=== PATIENT | female | born 1960 | race Caucasian/White ===

== ENCOUNTER → 2018-02-10 | Outpatient (CLI) | payer OTHER ==
[2018-02-10 08:00] LABS: ABSOLUTE BASOPHILS # (AUTO) 0.1 10^3/uL (0.0-0.2); ABSOLUTE EOSINOPHILS # (AUTO) 0.1 10^3/uL (0.0-0.6); ABSOLUTE LYMPHOCYTES (AUTO) 1.7 10^3/uL (0.5-4.7); ABSOLUTE MONOCYTES (AUTO) 0.5 10^3/uL (0.1-1.4); BASOPHILS % (AUTO) 0.8 % (0-2); HEMATOCRIT 39.5 % (36.0-47.0); HEMOGLOBIN 13.5 g/dL (12.0-15.5); LYMPHOCYTES % (AUTO) 22.5 % (13-45); MEAN CORPUSCULAR HEMOGLOBIN 32.7 pg (27.0-33.4); MEAN CORPUSCULAR HGB CONC 34.1 g/dL (32.0-36.0); MEAN CORPUSCULAR VOLUME 96 fl (80-97); MONOCYTES % (AUTO) 6.7 % (3-13); PLATELET COUNT 290 10^3/uL (150-450); RED BLOOD COUNT 4.12 10^6/uL (3.72-5.28); RED CELL DISTRIBUTION WIDTH 13.5 % (11.5-14.0); TOTAL CELLS COUNTED % (AUTO) 100 %; WHITE BLOOD COUNT 7.4 10^3/uL (4.0-10.5)
[2018-02-10 08:23] LABS: ALANINE AMINOTRANSFERASE 34 U/L (9-52); ALBUMIN 3.7 g/dL (3.5-5.0); ALKALINE PHOSPHATASE 66 U/L (38-126); AMYLASE 37 U/L (30-110); ANION GAP 10 (5-19); ASPARTATE AMINO TRANSFERASE 26 U/L (14-36); BILIRUBIN,DIRECT 0.2 mg/dL (0.0-0.4); BILIRUBIN,TOTAL 0.8 mg/dL (0.2-1.3); BLOOD UREA NITROGEN 23 mg/dL (7-20); CALCIUM 9.2 mg/dL (8.4-10.2); CARBON DIOXIDE 31 mmol/L (22-30); CHLORIDE 101 mmol/L (98-107); CHOLESTEROL 205.24 mg/dL (0-200); GLUCOSE 353 mg/dL (75-110); SODIUM 142.1 mmol/L (137-145); TOTAL PROTEIN 6.3 g/dL (6.3-8.2); TRIGLYCERIDES 85 mg/dL (<150)
[2018-02-10 08:34] LABS: DIRECT LDL 127 mg/dL (<100)
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
[2018-02-10 12:08] LABS: T3 UPTAKE 36.8 %; THYROXINE T4 7.24 ug/dL (5.53-11.0)
== END ==
LOC: CCC 07:16
DX: E10.8 Type 1 diabetes mellitus with unspecified complications (principal); E03.8 Other specified hypothyroidism
CPT/HCPCS: 36415; 80053; 80061; 82150; 83036; 84436; 84443; 84479; 85025

== ENCOUNTER → 2018-07-11 | Outpatient (CLI) | payer OTHER ==
[2018-07-11 17:35] LABS: ABSOLUTE BASOPHILS # (AUTO) 0.1 10^3/uL (0.0-0.2); ABSOLUTE EOSINOPHILS # (AUTO) 0.1 10^3/uL (0.0-0.6); ABSOLUTE LYMPHOCYTES (AUTO) 1.5 10^3/uL (0.5-4.7); ABSOLUTE MONOCYTES (AUTO) 0.5 10^3/uL (0.1-1.4); BASOPHILS % (AUTO) 0.6 % (0-2); EOSINOPHILS % (AUTO) 0.9 % (0-6); HEMATOCRIT 39.6 % (36.0-47.0); HEMOGLOBIN 13.8 g/dL (12.0-15.5); LYMPHOCYTES % (AUTO) 19.1 % (13-45); MEAN CORPUSCULAR HGB CONC 34.8 g/dL (32.0-36.0); MEAN CORPUSCULAR VOLUME 95 fl (80-97); MONOCYTES % (AUTO) 5.8 % (3-13); PLATELET COUNT 289 10^3/uL (150-450); RED BLOOD COUNT 4.18 10^6/uL (3.72-5.28); RED CELL DISTRIBUTION WIDTH 13.4 % (11.5-14.0); SEGMENTED NEUTROPHILS % (AUTO) 73.6 % (42-78); TOTAL CELLS COUNTED % (AUTO) 100 %; WHITE BLOOD COUNT 8.1 10^3/uL (4.0-10.5)
[2018-07-11 17:55] LABS: ALANINE AMINOTRANSFERASE 18 U/L (9-52); ALBUMIN 3.9 g/dL (3.5-5.0); ALKALINE PHOSPHATASE 57 U/L (38-126); AMYLASE 32 U/L (30-110); ANION GAP 8 (5-19); ASPARTATE AMINO TRANSFERASE 24 U/L (14-36); BILIRUBIN,DIRECT 0.1 mg/dL (0.0-0.4); BILIRUBIN,TOTAL 0.6 mg/dL (0.2-1.3); BLOOD UREA NITROGEN 22 mg/dL (7-20); CALCIUM 9.6 mg/dL (8.4-10.2); CARBON DIOXIDE 30 mmol/L (22-30); CHLORIDE 102 mmol/L (98-107); GLUCOSE 109 mg/dL (75-110); POTASSIUM 4.5 mmol/L (3.6-5.0); SODIUM 140.2 mmol/L (137-145); TOTAL PROTEIN 6.7 g/dL (6.3-8.2)
[2018-07-11 18:11] LABS: T3 UPTAKE 36.1 %; THYROXINE T4 6.86 ug/dL (5.53-11.0)
--- NOTE | 2018-07-11 21:16 | RADIOLOGY REPORT (SQ) ---
EXAM DESCRIPTION: HAND BILATERAL 3 VIEWS COMPLETED DATE/TIME: 07/11/2018 5:31 pm REASON FOR STUDY: KENIA HAND PAIN E10.8 TYPE 1 DIABETES MELLITUS WITH UNSPECIFIED COMPLICATION E03.8 OTHER SPECIFIED HYPOTHYROIDISM M79.643 PAIN IN UNSPECIFIED HAND COMPARISON: None. EXAM PARAMETERS: NUMBER OF VIEWS: Three views right hand. Three views left hand. TECHNIQUE: AP, lateral and oblique radiographic images acquired of bilateral hands. LIMITATIONS: None. FINDINGS: RIGHT HAND: MINERALIZATION: Normal. BONES: No acute fracture or dislocation. No worrisome bone lesions. No significant osteophytes. JOINTS: No erosions. No felipe-articular osteopenia. No chondrocalcinosis. SOFT TISSUES: No swelling. No calcifications. OTHER: No other significant finding. LEFT HAND: MINERALIZATION: Normal. BONES: No acute fracture or dislocation. No worrisome bone lesions. No significant osteophytes. JOINTS: No erosions. No felipe-articular osteopenia. No chondrocalcinosis. SOFT TISSUES: No swelling. No calcifications. OTHER: No other significant finding. IMPRESSION: NEGATIVE STUDY BILATERAL HANDS. NO ACUTE POST-TRAUMATIC CHANGES. NO EXPLANATION FOR PAIN . TECHNICAL DOCUMENTATION: JOB ID: [id number] [employer]- All Rights Reserved Reading location - IP/workstation name: [email or web address]
[2018-07-13 16:03] LABS: CHOLESTEROL 192.54 mg/dL (0-200); TRIGLYCERIDES 57 mg/dL (<150)
[2018-07-13 16:14] LABS: DIRECT LDL 118 mg/dL (<100)
== END ==
LOC: OD 17:05
DX: M79.642 Pain in left hand (principal); M79.641 Pain in right hand; E10.8 Type 1 diabetes mellitus with unspecified complications; E03.8 Other specified hypothyroidism
CPT/HCPCS: 36415; 80053; 80061; 82150; 83036; 84436; 84443; 84479; 85025

== ENCOUNTER 2018-07-23 09:18 | Emergency (ER) | payer SELFPAY ==
[2018-07-23 09:34] VITALS: BP 143/60
--- NOTE | 2018-07-23 09:41 | ER Document Report ---
HPI - HPI Patient complains to provider of: left ear pain Onset: Yesterday Onset/Duration: Gradual Quality of pain: Achy Pain Level: 4 Context: Patient presents complaining of left ear pain that started yesterday. Patient states that she has had drainage from the left ear. Patient denies any fever. Associated Symptoms: Earache. denies: Fever Exacerbated by: Denies Relieved by: Denies Similar symptoms previously: No Recently seen / treated by doctor: No - ROS ROS below otherwise negative: Yes Systems Reviewed and Negative: Yes All other systems reviewed and negative - CONSTITUTIONAL Constitutional: DENIES: Fever - EENT EENT: REPORTS: Ear Pain - L. DENIES: Sore Throat - GASTROINTESTINAL Gastrointestinal: DENIES: Nausea, Patient vomiting - REPRODUCTIVE Reproductive: DENIES: : - MUSCULOSKELETAL Musculoskeletal: DENIES: Neck Pain - DERM Skin Color: Normal Skin Problems: None Past Medical History - General Information source: Patient - Social History Smoking Status: Never Smoker Chew tobacco use (# tins/day): No Frequency of alcohol use: Occasional Drug Abuse: None Lives with: Alone Family History: Reviewed & Not Pertinent Patient has suicidal ideation: No Patient has homicidal ideation: No - Past Medical History Cardiac Medical History: Denies: Hx Coronary Artery Disease, Hx Heart Attack, Hx Hypertension Pulmonary Medical History: Reports: Hx Bronchitis Denies: Hx Asthma, Hx COPD, Hx Pneumonia Neurological Medical History: Denies: Hx Cerebrovascular Accident, Hx Seizures Endocrine Medical History: Reports: Hx Diabetes Mellitus Type 2, Hx Hypothyroidism Renal/ Medical History: Reports: Hx Kidney Stones - 2010. Denies: Hx Peritoneal Dialysis GI Medical History: Denies: Hx Hepatitis, Hx Hiatal Hernia, Hx Ulcer Musculoskeletal Medical History: Reports Hx Arthritis Infectious Medical History: Denies: Hx Hepatitis Past Surgical History: Reports: Hx Orthopedic Surgery, Other - eye - Immunizations Hx Diphtheria, Pertussis, Tetanus Vaccination: Yes Vertical Provider Document - CONSTITUTIONAL Agree With Documented VS: Yes Exam Limitations: No Limitations General Appearance: WD/WN, No Apparent Distress - INFECTION CONTROL TRAVEL OUTSIDE OF THE [place] IN LAST 30 DAYS: No - HEENT HEENT: Atraumatic, Normocephalic. negative: Pharyngeal Exudate, Pharyngeal Tenderness, Pharyngeal Erythema, Tympanic Membrane Red, Tympanic Membrane Bulging Notes: left ear pain, minimal swelling to left external auditory canal with exudate, no mastoid tenderness or swelling. - NECK Neck: Normal Inspection, Supple. negative: Lymphadenopathy-Left, Lymphadenopathy-Right - RESPIRATORY Respiratory: Breath Sounds Normal, No Respiratory Distress - CARDIOVASCULAR Cardiovascular: Regular Rate, Regular Rhythm - BACK Back: Normal Inspection - MUSCULOSKELETAL/EXTREMETIES Musculoskeletal/Extremeties: MAEW - NEURO Level of Consciousness: Awake, Alert, Appropriate - DERM Integumentary: Warm, Dry, No Rash Course - Vital Signs Vital signs: Temp Pulse Resp BP Pulse Ox 97.7 F 62 18 143/60 H 98 07/23/18 09:32 07/23/18 09:32 07/23/18 09:32 07/23/18 09:32 07/23/18 09:32 Discharge - Discharge Clinical Impression: Otitis externa Qualifiers: Otitis externa type: unspecified type Chronicity: acute Laterality: left Qualified Code(s): H60.502 - Unspecified acute noninfective otitis externa, left ear Condition: Stable Disposition: HOME, SELF-CARE Instructions: Use of Ear Drops ([facility]), Otitis Externa ([facility]) Additional Instructions: Return immediately for any new or worsening symptoms Followup with your primary care provider, call tomorrow to make a followup appointment Prescriptions: Naproxen [Naprosyn 250 Nmg Tablet] 1 tab PO BID #14 tablet Neomy Sulf/Polymyx B Sulf/Hc [Cortisporin Ear Suspension] 4 drop OT QID #1 bottle Referrals: [facility] [Primary Care Provider] - Follow up as needed
== END 2018-07-23 09:55 | disposition home or self-care (01) ==
LOC: ER 09:18
DX: H60.502 Unspecified acute noninfective otitis externa, left ear (principal); H92.02 Otalgia, left ear; E11.9 Type 2 diabetes mellitus without complications
CPT/HCPCS: 99282

== ENCOUNTER 2018-08-12 09:39 | Emergency (ER) | payer SELFPAY ==
[2018-08-12] MEDS ORDERED: IPRATROPIUM/ALBUTEROL 0.5-2.5 MG/3 ML AMPUL NEB ONE (10:32)
[2018-08-12] MEDS ORDERED: ALBUTEROL SULFATE HFA (90 MCG/PUFF) 8 GM MDI (1 MDI/ER DISP) IH ONE (10:32)
--- NOTE | 2018-08-12 10:35 | ER Document Report ---
ED General - General Chief Complaint: Cold Symptoms Stated Complaint: COLD SYMPTOMS Time Seen by Provider: 08/12/18 10:23 Notes: Patient is a 58-year-old female that presents to the emergency department for chief complaint of cough and laryngitis. Patient states that her symptoms started yesterday around 5:00, she has been working clinically, is a nursing admin, and yesterday while she was at work the symptoms started. Her voice seem to go away over the course of the evening, and into this morning, she initially was having cough and sinus pressure, but feels more of a deeper cough and thinks it may be going to her lungs, reports history of bronchitis. She does have history of diabetes, denies history of lung disease such as COPD or emphysema. She denies having any associated fevers, chills, night sweats, chest pain, shortness of breath or difficulty breathing, nausea, vomiting or abdominal pain. Past Medical History: Diabetes mellitus Past Surgical History: Eye surgery, left rotator cuff surgery Social History: Denies tobacco, alcohol or illicit drug use Family History: Reviewed and noncontributory for presenting illness Allergies: Reviewed, see documented allergy list. REVIEW OF SYSTEMS: Other than noted above, the 12 point review of systems was reviewed with the patient and were negative, all pertinent findings are included in the HPI. PHYSICAL EXAMINATION: Vital signs reviewed, nursing noted reviewed. GENERAL: Well-appearing, well-nourished and in no acute distress Patient noted to have a soft voice, consistent with laryngitis. HEAD: Atraumatic, normocephalic. EYES: Eyes appear normal, extraocular movements intact, sclera anicteric, conjunctiva are normal. ENT: nares patent, oropharynx clear without exudates. Moist mucous membranes. TMs appear normal bilaterally. NECK: Normal range of motion, supple without lymphadenopathy, no stridor LUNGS: Breath sounds clear to auscultation bilaterally and equal. No wheezes rales or rhonchi. HEART: Regular rate and rhythm without murmurs ABDOMEN: Soft, nontender, normoactive bowel sounds. No rebound, guarding, or rigidity. No masses appreciated. EXTREMITIES: Nontender, good range of motion, no pitting or edema. NEUROLOGICAL: No focal neurological deficits. Moves all extremities spontaneously Motor and sensory grossly intact on exam. PSYCH: Normal mood, normal affect. SKIN: Warm, Dry, normal turgor, no rashes or lesions noted on exposed skin TRAVEL OUTSIDE OF THE [place] IN LAST 30 DAYS: No - Related Data Allergies/Adverse Reactions: loratadine [From Claritin] Allergy (Verified 08/12/18 09:41) povidone-iodine [From Betadine] Allergy (Verified 08/12/18 09:41) Soap [From Betadine] Allergy (Verified 08/12/18 09:41) Past Medical History - Social History Smoking Status: Never Smoker Chew tobacco use (# tins/day): No Frequency of alcohol use: None Drug Abuse: None Family History: Reviewed & Not Pertinent Patient has suicidal ideation: No Patient has homicidal ideation: No - Past Medical History Cardiac Medical History: Denies: Hx Coronary Artery Disease, Hx Heart Attack, Hx Hypertension Pulmonary Medical History: Reports: Hx Bronchitis Denies: Hx Asthma, Hx COPD, Hx Pneumonia Neurological Medical History: Denies: Hx Cerebrovascular Accident, Hx Seizures Endocrine Medical History: Reports: Hx Diabetes Mellitus Type 2, Hx Hypothyroidism Renal/ Medical History: Reports: Hx Kidney Stones - 2010. Denies: Hx Peritoneal Dialysis GI Medical History: Denies: Hx Hepatitis, Hx Hiatal Hernia, Hx Ulcer Musculoskeletal Medical History: Reports Hx Arthritis Infectious Medical History: Denies: Hx Hepatitis Past Surgical History: Reports: Hx Orthopedic Surgery, Other - eye. Denies: Hx Hysterectomy, Hx Mastectomy, Hx Open Heart Surgery, Hx Pacemaker - Immunizations Hx Diphtheria, Pertussis, Tetanus Vaccination: Yes Physical Exam - Vital signs Vitals: Temp Pulse Resp BP Pulse Ox 97.7 F 71 18 131/53 H 96 08/12/18 09:45 08/12/18 09:45 08/12/18 09:45 08/12/18 09:45 08/12/18 09:45 Course - Re-evaluation Re-evalutation: Patient seen and examined vital signs reviewed. Laboratory data and imaging were ordered as appropriate for the patient's presenting symptoms and complaint, with consideration of any critical or life threatening conditions that may be associated with their obtained history and exam as noted above. Patient was treated with DuoNeb breathing treatment Results were reviewed when available and demonstrated negative influenza testing and negative chest x-ray The patient was re-evaluated and was improved Evaluation was most consistent with URI with laryngitis, most likely viral in etiology, patient will be prescribed Mucinex, and albuterol inhaler, advised to follow-up with PCP. Results were discussed with the patient at this point, after careful consideration I feel that that patient can be discharged from the emergency department, the patient was educated treatments and reasons to return to the emergency department based on their presumed diagnosis as noted above, they were advised to followup with a primary care physician in 2-3 days. Patient was agreeable to plan of care. *Note is created using voice recognition software and may contain spelling, syntax or grammatical errors. Chest X-Ray 08/12/18 10:32 IMPRESSION: NO ACUTE RADIOGRAPHIC FINDING IN THE CHEST. - Vital Signs Vital signs: Temp Pulse Resp BP Pulse Ox 97.7 F 71 18 131/53 H 96 08/12/18 09:45 08/12/18 09:45 08/12/18 09:45 08/12/18 09:45 08/12/18 09:45 Discharge - Discharge Clinical Impression: Laryngitis URI (upper respiratory infection) Qualifiers: URI type: unspecified URI Qualified Code(s): J06.9 - Acute upper respiratory infection, unspecified Condition: Stable Disposition: HOME, SELF-CARE Instructions: Upper Respiratory Illness ([facility]), Laryngitis ([facility]) Additional Instructions: Please use the inhaler every 4 hours as needed for cough and shortness of breath , please take the Mucinex as prescribed, to help thin secretions, if your symptoms continue to persist over the next 2 weeks, and or not improving with conservative management, please follow-up with your primary care physician, at that point antibiotics may be warranted. Prescriptions: Guaifenesin [Mucinex] 1,200 mg PO BID #20 tab.er.12h Referrals: TISHA GONZALEZ MD [[facility]] - Follow up as needed
--- NOTE | 2018-08-12 10:58 | RADIOLOGY REPORT (SQ) ---
EXAM DESCRIPTION: CHEST 2 VIEWS COMPLETED DATE/TIME: 08/12/2018 10:48 am REASON FOR STUDY: cough COMPARISON: None. EXAM PARAMETERS: NUMBER OF VIEWS: two views TECHNIQUE: Digital Frontal and Lateral radiographic views of the chest acquired. RADIATION DOSE: NA LIMITATIONS: none FINDINGS: LUNGS AND PLEURA: No opacities, masses or pneumothorax. No pleural effusion. MEDIASTINUM AND HILAR STRUCTURES: No masses or contour abnormalities. HEART AND VASCULAR STRUCTURES: Heart normal size. No evidence for failure. BONES: No acute findings. HARDWARE: None in the chest. OTHER: No other significant finding. IMPRESSION: NO ACUTE RADIOGRAPHIC FINDING IN THE CHEST. TECHNICAL DOCUMENTATION: JOB ID: [id number] [employer]- All Rights Reserved Reading location - IP/workstation name: [email or web address]
[2018-08-12 11:01] LABS: A TYPE INFLUENZA AG NEGATIVE (NEGATIVE); B INFLUENZA AG NEGATIVE (NEGATIVE)
[2018-08-12 11:21] VITALS: BP 131/58
== END 2018-08-12 11:26 | disposition home or self-care (01) ==
LOC: ER 09:39
DX: J04.0 Acute laryngitis (principal); J06.9 Acute upper respiratory infection, unspecified; E11.9 Type 2 diabetes mellitus without complications; E03.9 Hypothyroidism, unspecified; Z87.442 Personal history of urinary calculi
CPT/HCPCS: 94640; 99284; 87804; 71046; J3490; J7620

== ENCOUNTER 2018-08-17 09:01 | Emergency (ER) | payer SELFPAY ==
[2018-08-17] MEDS ORDERED: NORMAL SALINE 1000 ML 1,000 ML IV ONE (09:33)
[2018-08-17] MEDS ORDERED: IPRATROPIUM/ALBUTEROL 0.5-2.5 MG/3 ML AMPUL NEB ONE (09:34)
[2018-08-17 10:39] LABS: ABSOLUTE BASOPHILS # (AUTO) 0.1 10^3/uL (0.0-0.2); ABSOLUTE EOSINOPHILS # (AUTO) 0.1 10^3/uL (0.0-0.6); ABSOLUTE LYMPHOCYTES (AUTO) 1.6 10^3/uL (0.5-4.7); ABSOLUTE MONOCYTES (AUTO) 0.8 10^3/uL (0.1-1.4); ABSOLUTE NEUT (AUTO) 6.8 10^3/uL (1.7-8.2); EOSINOPHILS % (AUTO) 1.6 % (0-6); HEMATOCRIT 40.1 % (36.0-47.0); HEMOGLOBIN 13.7 g/dL (12.0-15.5); LYMPHOCYTES % (AUTO) 16.9 % (13-45); MEAN CORPUSCULAR HEMOGLOBIN 32.5 pg (27.0-33.4); MEAN CORPUSCULAR HGB CONC 34.2 g/dL (32.0-36.0); MEAN CORPUSCULAR VOLUME 95 fl (80-97); MONOCYTES % (AUTO) 8.1 % (3-13); PLATELET COUNT 341 10^3/uL (150-450); RED BLOOD COUNT 4.22 10^6/uL (3.72-5.28); RED CELL DISTRIBUTION WIDTH 13.6 % (11.5-14.0); SEGMENTED NEUTROPHILS % (AUTO) 72.4 % (42-78); TOTAL CELLS COUNTED % (AUTO) 100 %; WHITE BLOOD COUNT 9.4 10^3/uL (4.0-10.5)
--- NOTE | 2018-08-17 10:55 | ER Document Report ---
ED General - General Chief Complaint: Sore Throat Stated Complaint: COUGH Time Seen by Provider: 08/17/18 09:26 TRAVEL OUTSIDE OF THE [place] IN LAST 30 DAYS: No - HPI Notes: Patient is a 58-year-old female that presents to the emergency department for chief complaint of cough and sore throat. Patient reports 6 days of cough. She was seen in the emergency room and given albuterol inhaler and Mucinex which she has been using. She states she is getting a productive sputum when coughing. The albuterol is not improving her cough. She denies any fevers but states she frequently feels cold. She states her throat feels scratchy when she is swallowing on occasion. She is a diabetic and her glucose today was 396. She reports polyuria and polydipsia. She denies any abdominal pain, nausea, vomiting and diarrhea. She denies chest pain. Past Medical History: Diabetes, hypothyroidism Past Surgical History: Left rotator cuff surgery Social History: Denies drugs alcohol and tobacco use Family History: Reviewed and noncontributory for presenting illness Allergies: Reviewed, see documented allergy list. REVIEW OF SYSTEMS: CONSTITUTIONAL : No fever chills No diaphoresis No recent illness EENT: No vision changes congestion sore throat CARDIOVASCULAR: No chest pain No palpitations RESPIRATORY: No shortness of breath cough No difficulty breathing GASTROINTESTINAL: No abdominal pain No nausea No vomiting No diarrhea GENITOURINARY: No dysuria No hematuria No difficulty urinating MUSCULOSKELETAL: No back pain No leg pain No arm pain SKIN: No rashes No lesions LYMPHATIC: No swollen, enlarged glands. NEUROLOGICAL: No lightheadedness No headache No weakness No paresthesias PSYCHIATRIC: No anxiety No depression PHYSICAL EXAMINATION: Vital signs reviewed, nursing noted reviewed. GENERAL: Well-appearing, well-nourished and in no acute distress. HEAD: Atraumatic, normocephalic. EYES: Eyes appear normal, extraocular movements intact, sclera anicteric, conjunctiva are normal. ENT: Nasal mucosal edema, no sinus tenderness to percussion, oropharynx clear without exudates. Dry mucous membranes. NECK: Normal range of motion, supple without lymphadenopathy LUNGS: Breath sounds clear to auscultation bilaterally and equal. No wheezes rales or rhonchi. HEART: Regular rate and rhythm without murmurs ABDOMEN: Soft, nontender, normoactive bowel sounds. No rebound, guarding, or rigidity. No masses appreciated. EXTREMITIES: Nontender, good range of motion, no pitting or edema. NEUROLOGICAL: No focal neurological deficits. Moves all extremities spontaneously Motor and sensory grossly intact on exam. PSYCH: Normal mood, normal affect. SKIN: Warm, Dry, normal turgor, no rashes or lesions noted on exposed skin - Related Data Allergies/Adverse Reactions: loratadine [From Claritin] Allergy (Verified 08/12/18 09:41) povidone-iodine [From Betadine] Allergy (Verified 08/12/18 09:41) Soap [From Betadine] Allergy (Verified 08/12/18 09:41) Past Medical History - Social History Smoking Status: Never Smoker Family History: Reviewed & Not Pertinent - Past Medical History Cardiac Medical History: Denies: Hx Coronary Artery Disease, Hx Heart Attack, Hx Hypertension Pulmonary Medical History: Reports: Hx Bronchitis Denies: Hx Asthma, Hx COPD, Hx Pneumonia Neurological Medical History: Denies: Hx Cerebrovascular Accident, Hx Seizures Endocrine Medical History: Reports: Hx Diabetes Mellitus Type 2, Hx Hypothyroidism Renal/ Medical History: Reports: Hx Kidney Stones - 2010. Denies: Hx Peritoneal Dialysis GI Medical History: Denies: Hx Hepatitis, Hx Hiatal Hernia, Hx Ulcer Musculoskeletal Medical History: Reports Hx Arthritis Infectious Medical History: Denies: Hx Hepatitis Past Surgical History: Reports: Hx Orthopedic Surgery, Other - eye. Denies: Hx Hysterectomy, Hx Mastectomy, Hx Open Heart Surgery, Hx Pacemaker - Immunizations Hx Diphtheria, Pertussis, Tetanus Vaccination: Yes Physical Exam - Vital signs Vitals: Temp Pulse Resp BP Pulse Ox 99.4 F 71 16 125/60 96 08/17/18 09:07 08/17/18 09:07 08/17/18 09:07 08/17/18 09:07 08/17/18 09:07 Course - Re-evaluation Re-evalutation: 08/17/18 10:55 Vitals reviewed. Nursing notes reviewed. Patient has dry mucous membranes and was given IV hydration. She appears clinically dehydrated. 08/17/18 12:34 Patient reevaluated after IV hydration and states she is feeling better. She is tolerating oral intake now. She is oxygenating well on room air. Chest x- ray shows no pneumonia. Rapid strep is negative. She is hyperglycemic on blood work however she is not in DKA. Patient has a glucometer and will continue to monitor blood sugars. She will follow with her doctor as already scheduled on 08/22. She will return for any new or worsening symptoms. Symptoms are likely viral in nature. Discharged home in stable condition. 08/17/18 12:35 Laboratory 08/17/18 08/17/18 08/17/18 10:15 10:15 11:30 WBC 9.4 RBC 4.22 Hgb 13.7 Hct 40.1 MCV 95 MCH 32.5 MCHC 34.2 RDW 13.6 Plt Count 341 Seg Neutrophils % 72.4 Lymphocytes % 16.9 Monocytes % 8.1 Eosinophils % 1.6 Basophils % 1.0 Absolute Neutrophils 6.8 Absolute Lymphocytes 1.6 Absolute Monocytes 0.8 Absolute Eosinophils 0.1 Absolute Basophils 0.1 VBG pH 7.34 VBG pCO2 56.2 VBG HCO3 29.5 VBG Base Excess 2.4 Sodium 136.9 L Potassium 4.9 Chloride 98 Carbon Dioxide 31 H Anion Gap 8 BUN 23 H Creatinine 0.72 Est GFR ( Amer) > 60 Est GFR (Non-Af Amer) > 60 Glucose 330 H Calcium 9.2 Group A Strep Rapid 08/17/18 11:45 WBC RBC Hgb Hct MCV MCH MCHC RDW Plt Count Seg Neutrophils % Lymphocytes % Monocytes % Eosinophils % Basophils % Absolute Neutrophils Absolute Lymphocytes Absolute Monocytes Absolute Eosinophils Absolute Basophils VBG pH VBG pCO2 VBG HCO3 VBG Base Excess Sodium Potassium Chloride Carbon Dioxide Anion Gap BUN Creatinine Est GFR ( Amer) Est GFR (Non-Af Amer) Glucose Calcium Group A Strep Rapid NEGATIVE Chest X-Ray 08/17/18 09:26 IMPRESSION: NO ACUTE RADIOGRAPHIC FINDING IN THE CHEST. - Vital Signs Vital signs: Temp Pulse Resp BP Pulse Ox 99.4 F 71 16 125/60 96 08/17/18 09:07 08/17/18 09:07 08/17/18 09:07 08/17/18 09:07 08/17/18 09:07 - Laboratory Result Diagrams: 08/17/18 10:15 08/17/18 10:15 Laboratory results interpreted by me: 08/17/18 10:15 Sodium 136.9 L Carbon Dioxide 31 H BUN 23 H Glucose 330 H Discharge - Discharge Clinical Impression: Cough, Hyperglycemia, Sore throat Condition: Stable Disposition: HOME, SELF-CARE Instructions: Sore Throat ([facility]), Upper Respiratory Illness ([facility]) Additional Instructions: Please return to the emergency department if you have any worsening, or concern of your symptoms. Please return to the emergency department if you develop chest pain, difficulty breathing, severe abdominal pain, or ongoing vomiting. Please follow-up with your primary care physician in 2-3 days and any other recommended physicians. If prescribed, take all medications as directed. If you have any questions or concerns do not hesitate to return the emergency department for evaluation. []
[2018-08-17 10:57] LABS: ANION GAP 8 (5-19); BLOOD UREA NITROGEN 23 mg/dL (7-20); CALCIUM 9.2 mg/dL (8.4-10.2); CARBON DIOXIDE 31 mmol/L (22-30); CHLORIDE 98 mmol/L (98-107); GLUCOSE 330 mg/dL (75-110); POTASSIUM 4.9 mmol/L (3.6-5.0); SODIUM 136.9 mmol/L (137-145)
--- NOTE | 2018-08-17 11:02 | RADIOLOGY REPORT (SQ) ---
EXAM DESCRIPTION: CHEST SINGLE VIEW COMPLETED DATE/TIME: 08/17/2018 10:06 am REASON FOR STUDY: cough COMPARISON: Two-view chest 08/12/2018 EXAM PARAMETERS: NUMBER OF VIEWS: One view. TECHNIQUE: Single frontal radiographic view of the chest acquired. RADIATION DOSE: NA LIMITATIONS: None. FINDINGS: LUNGS AND PLEURA: No opacities, masses or pneumothorax. No pleural effusion. MEDIASTINUM AND HILAR STRUCTURES: No masses. Contour normal. HEART AND VASCULAR STRUCTURES: Heart normal in size. Normal vasculature. BONES: No acute findings. HARDWARE: None in the chest. OTHER: No other significant finding. IMPRESSION: NO ACUTE RADIOGRAPHIC FINDING IN THE CHEST. TECHNICAL DOCUMENTATION: JOB ID: [id number] [employer]- All Rights Reserved Reading location - IP/workstation name: [email or web address]
[2018-08-17 11:52] LABS: VENOUS BLOOD BASE EXCESS 2.4 mmol/L; VENOUS BLOOD HCO3 29.5 mmol/L (20-32); VENOUS BLOOD PCO2 56.2 mmHg (35-63); VENOUS BLOOD PH 7.34 (7.30-7.42)
[2018-08-17 12:48] VITALS: BP 117/52
== END 2018-08-17 12:45 | disposition home or self-care (01) ==
LOC: ER 09:01
DX: E11.65 Type 2 diabetes mellitus with hyperglycemia (principal); J02.9 Acute pharyngitis, unspecified; R05 Cough; R35.8 Other polyuria; R63.1 Polydipsia
CPT/HCPCS: 94640; 99283; 96360; 36415; 87070; 87880; 85025; 80048; 82803; 71045; J7030; J7620

== ENCOUNTER → 2018-09-22 | Outpatient (CLI) | payer SELFPAY | LOC: OD 09:53 | PROVIDERS: ATTEND Obstetrics & Gynecology Gynecology | DX: F43.20 Adjustment disorder, unspecified (principal) | CPT/HCPCS: 36415; 84146 ==

== ENCOUNTER 2018-11-03 08:36 | Emergency (ER) | payer OTHER ==
[2018-11-03 08:48] VITALS: BP 142/59
--- NOTE | 2018-11-03 09:32 | ER Document Report ---
HPI - HPI Time Seen by Provider: 11/03/18 09:26 Pain Level: Denies Notes: Patient is a 58-year-old female who presents emergency department complaining of nasal congestion/discharge, sneezing, dry nonproductive cough, watery eyes over the last 2-3 days. Patient states that she is still eating and drinking without difficulty. She is urinating normally and having normal bowel movements. She has no other concerns or complaints. She has been using some [id number] meds for her symptoms. Denies any headache, fever, neck pain, sore throat, chest pain, palpitations, syncope, shortness of breath, wheeze, dyspnea, abdominal pain, nausea/vomiting/diarrhea, urinary retention, dysuria, hematuria, or rash. - ROS Systems Reviewed and Negative: Yes All other systems reviewed and negative - CONSTITUTIONAL Constitutional: DENIES: Fever, Chills - EENT EENT: DENIES: Eye problems - NEURO Neurology: DENIES: Weakness, Vision blurred, Dizzinesss / Vertigo - CARDIOVASCULAR Cardiovascular: DENIES: Chest pain - RESPIRATORY Respiratory: REPORTS: Coughing. DENIES: Trouble Breathing - GASTROINTESTINAL Gastrointestinal: DENIES: Abdominal Pain, Black / Bloody Stools - URINARY Urinary: DENIES: Dysuria, Urgency, Frequency - REPRODUCTIVE Reproductive: DENIES: : - MUSCULOSKELETAL Musculoskeletal: DENIES: Extremity pain Past Medical History - Social History Smoking Status: Never Smoker Chew tobacco use (# tins/day): No Frequency of alcohol use: None Drug Abuse: None Family History: Reviewed & Not Pertinent Patient has suicidal ideation: No Patient has homicidal ideation: No - Past Medical History Cardiac Medical History: Denies: Hx Coronary Artery Disease, Hx Heart Attack, Hx Hypertension Pulmonary Medical History: Reports: Hx Bronchitis Denies: Hx Asthma, Hx COPD, Hx Pneumonia Neurological Medical History: Denies: Hx Cerebrovascular Accident, Hx Seizures Endocrine Medical History: Reports: Hx Diabetes Mellitus Type 2, Hx Hypothy roidism Renal/ Medical History: Reports: Hx Kidney Stones - 2010. Denies: Hx Peritoneal Dialysis GI Medical History: Denies: Hx Hepatitis, Hx Hiatal Hernia, Hx Ulcer Musculoskeletal Medical History: Reports Hx Arthritis Infectious Medical History: Denies: Hx Hepatitis Past Surgical History: Reports: Hx Orthopedic Surgery, Other - eye. Denies: Hx Hysterectomy, Hx Mastectomy, Hx Open Heart Surgery, Hx Pacemaker - Immunizations Hx Diphtheria, Pertussis, Tetanus Vaccination: Yes Vertical Provider Document - CONSTITUTIONAL Agree With Documented VS: Yes Notes: PHYSICAL EXAMINATION: GENERAL: Well-appearing, well-nourished and in no acute distress. A&Ox4. Answers questions appropriately. Moves comfortably w/o notable distress HEAD: Atraumatic, normocephalic. EYES: Pupils equal round and reactive to light, extraocular movements intact, sclera anicteric, conjunctiva are normal. ENT: EAC clear b/l. TM's intact b/l without erythema, fluid, or perforation. Nares patent and with clear discharge. oropharynx no erythema without exudates. No tonsilar hypertrophy without erythema or exudate. No palatine shift. Uvula midline. No tongue protrusion. No drooling, hoarseness, or airway compromise. Moist mucous membranes. No sinus tenderness. NECK: Normal range of motion, supple without lymphadenopathy. No rigidity/meningismus. LUNGS: Breath sounds clear to auscultation bilaterally and equal. No wheezes rales or rhonchi. No retractions HEART: Regular rate and rhythm without murmurs, rubs, gallops. ABDOMEN: Soft, nontender, nondistended abdomen. No guarding, no rebound. Normal bowel sounds present. No CVA tenderness bilaterally. NEUROLOGICAL: Normal speech, normal gait. PSYCH: Normal mood, normal affect. SKIN: Warm, Dry, normal turgor, no rashes or lesions noted. - INFECTION CONTROL TRAVEL OUTSIDE OF THE [place] IN LAST 30 DAYS: No Course - Re-evaluation Re-evalutation: 11/03/18 09:28 Patient is an afebrile, well-hydrated, 22-year-old female who presents to the ED with acute URI, suspect viral with possible allergy component. Vitals are acceptable. PE is otherwise unremarkable. No labs or imaging warranted at this time based on H&P. Patient has no significant cardiopulmonary or immuno compromised medical conditions. Patient's lungs are clear to auscultation bilaterally without tachycardia, hypoxia, or tachypnea. Patient is tolerating p.o. without any difficulties. Low suspicion for any meningitis, sepsis, peritonsillar/pharyngeal abscess, respiratory compromise, severe dehydration, or other emergent systemic condition at this time. Patient is aware this condition can change from initial presentation and she needs to monitor symptoms closely. Conservative measures otherwise for symptoms. Recheck with your PCM in 3-5 days. Return to the ED with any worsening/concerning symptoms otherwise as reviewed in discharge. Patient is in agreement. - Vital Signs Vital signs: Temp Pulse Resp BP Pulse Ox 97.3 F 67 18 142/59 H 98 11/03/18 08:47 11/03/18 08:47 11/03/18 08:47 11/03/18 08:47 11/03/18 08:47 Discharge - Discharge Clinical Impression: Acute URI Condition: Stable Disposition: HOME, SELF-CARE Instructions: Upper Respiratory Illness ([facility]) Additional Instructions: Maintain adequate fluid intake Take meds as directed tylenol/ibuprofen as needed over the counter cold medication as needed for symptoms Humidified air may help Wash your hands regularly Wear a mask when coughing F/u: with your PCM in 3-5 days for a recheck Return to the ED with any fever, worsening pain, chest pain, palpitations, syncope, worsening RAMOS, neck pain/stiffness, shortness of breath, wheezing, drooling, trouble swallowing/breathing, abdominal pain, n/v/d, rash, or worsening/concerning symptoms otherwise. Forms: Elevated Blood Pressure Referrals: [facility] [Provider Group] - Follow up in 3-5 days
== END 2018-11-03 09:37 | disposition home or self-care (01) ==
LOC: ER 08:36
DX: J06.9 Acute upper respiratory infection, unspecified (principal); R09.81 Nasal congestion; R09.89 Other specified symptoms and signs involving the circulatory and respiratory systems; R05 Cough; E11.9 Type 2 diabetes mellitus without complications
CPT/HCPCS: 99283

== ENCOUNTER → 2018-11-17 | Outpatient (CLI) | payer OTHER ==
--- NOTE | 2018-11-17 18:06 | RADIOLOGY REPORT (SQ) ---
EXAM DESCRIPTION: CHEST PA/LATERAL COMPLETED DATE/TIME: 11/17/2018 5:41 pm REASON FOR STUDY: ACUTE BRONCHITIS; PNEUMONIA; PROLONGED COUGH COMPARISON: 08/17/2018 TECHNIQUE: Frontal and lateral radiographic views of the chest acquired. NUMBER OF VIEWS: Two view. LIMITATIONS: None. FINDINGS: LUNGS AND PLEURA: No pneumothorax. No consolidation or pleural effusion. MEDIASTINUM AND HILAR STRUCTURES: Stable. HEART AND VASCULAR STRUCTURES: Stable. BONES: No acute findings. HARDWARE: None in the chest. OTHER: No other significant finding. IMPRESSION: NO ACUTE FINDINGS. TECHNICAL DOCUMENTATION: JOB ID: [id number] 2010 [employer]- All Rights Reserved Reading location - IP/workstation name: [email or web address]
== END ==
LOC: CCC 17:14
DX: J20.9 Acute bronchitis, unspecified (principal); J18.9 Pneumonia, unspecified organism
CPT/HCPCS: 71046

== ENCOUNTER → 2018-11-19 | Outpatient (CLI) | payer OTHER ==
[2018-11-19 08:49] LABS: ALANINE AMINOTRANSFERASE 27 U/L (9-52); ALKALINE PHOSPHATASE 86 U/L (38-126); ANION GAP 9 (5-19); ASPARTATE AMINO TRANSFERASE 34 U/L (14-36); BILIRUBIN,DIRECT 0.2 mg/dL (0.0-0.4); BILIRUBIN,TOTAL 0.8 mg/dL (0.2-1.3); BLOOD UREA NITROGEN 21 mg/dL (7-20); CALCIUM 9.5 mg/dL (8.4-10.2); CARBON DIOXIDE 30 mmol/L (22-30); CHLORIDE 102 mmol/L (98-107); CHOLESTEROL 217.43 mg/dL (0-200); GLUCOSE 249 mg/dL (75-110); POTASSIUM 4.7 mmol/L (3.6-5.0); SODIUM 140.5 mmol/L (137-145); TOTAL PROTEIN 6.5 g/dL (6.3-8.2); TRIGLYCERIDES 99 mg/dL (<150)
[2018-11-19 09:00] LABS: DIRECT LDL 123 mg/dL (<100)
== END ==
LOC: CCC 07:43
DX: E11.8 Type 2 diabetes mellitus with unspecified complications (principal); E03.8 Other specified hypothyroidism; J20.9 Acute bronchitis, unspecified
CPT/HCPCS: 36415; 80053; 80061; 83036; 84443

== ENCOUNTER → 2019-02-20 | Outpatient (CLI) | payer OTHER ==
[2019-02-20 11:51] LABS: FREE T4 (FREE THYROXINE) 1.46 ng/dL (0.78-2.19)
[2019-02-20 12:05] LABS: THYROID STIMULATING HORMONE 0.08 uIU/mL (0.47-4.68)
== END ==
LOC: LAB 10:24
PROVIDERS: ATTEND Internal Medicine Endocrinology, Diabetes & Metabolism
DX: E03.8 Other specified hypothyroidism (principal)
CPT/HCPCS: 36415; 84439; 84443

== ENCOUNTER → 2019-03-27 | Outpatient (CLI) | payer OTHER ==
--- NOTE | 2019-03-27 15:23 | RADIOLOGY REPORT (SQ) ---
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 TECHNIQUE: Multiplanar imaging includes noncontrasted T1, T2, FLAIR, diffusion with ADC map and post gadolinium contrast T1 sequences. Pituitary protocol, thin section coronal and sagittal T2, T1 precontrast, T1 post contrasted images t hrough the pituitary gland and sella. Images stored on PACS. CONTRAST TYPE AND DOSE: 15 mL Dotarem. RENAL FUNCTION: Not indicated. ACR Type II contrast agent associated with few, if any, unconfounded cases of NSF LIMITATIONS: None. FINDINGS: PITUITARY FOSSA: Overall, the pituitary gland is at the upper limits of normal size, 10 mm craniocaudad by 11 mm AP x 12 mm transverse. Normal posterior pituitary bright spot. Midline infun dibulum. No bulging into the suprasellar cistern or cavernous sinuses. No mass effect on the optic chiasm. Right ICA loops medially into the sella on coronal images and 7, an anatomic variant. CSF SPACES: Normal in size and contour. No hemorrhage. CEREBRUM: Sulci and gyri normal in size and contour. Normal white matter signal on FLAIR imaging. No evidence of hemorrhage, mass, or extraaxial fluid collection. No abnormal enhancement post contrast. POSTERIOR FOSSA: No signal alteration. No hemorrhage. No edema, masses, or mass effect. Internal augustin tory canals, cerebellopontine angles, mastoids normal. No enhancing lesions. No abnormal enhancement post contrast. DIFFUSION IMAGING: Negative for acute or subacute infarction. ORBITS: No masses. Right globe post cataract surgery. PARANASAL SINUSES: No fluid levels. Mucosa normal. OTHER: No other significant finding. IMPRESSION: ESSENTIALLY NORMAL MRI OF THE BRAIN WITHOUT AND WITH INTRAVENOUS GADOLINIUM CONTRAST. EVIDENCE OF ACUTE STROKE: NO. TECHNICAL DOCUMENTATION: JOB ID: [id number] [employer]- All Rights Reserved Reading location - IP/workstation name: [email or web address]
== END ==
LOC: RAD 13:33
DX: E23.6 Other disorders of pituitary gland (principal)
CPT/HCPCS: 82565; 70553; A9576

== ENCOUNTER 2019-04-18 07:17 | Emergency (ER) | payer OTHER ==
[2019-04-18] MEDS ORDERED: ACETAMINOPHEN 325 MG TABLET PO ONE (09:08)
--- NOTE | 2019-04-18 09:10 | ER Document Report ---
HPI - HPI Time Seen by Provider: 04/18/19 08:47 Pain Level: 5 Context: Patient is a 58-year-old female with a history of type 1 diabetes and hypothyroidism who presents to the emergency department with a chief complaint of fall. Patient states that last night around 7 PM she was at [facility] when she tripped/slipped over a bag of mulch. Patient states she was carrying her purse on her left arm and when she fell onto her left side her purse jammed into her left ribs. Patient reports that the pain is worse with deep breath and movement. Patient reports a history of a fractured rib on the right and reports that it feels similar. Patient denies any other injury to include loss of consciousness, head injury, neck injury or extremity injury. Patient states she is not on blood thinners but will occasionally take a baby aspirin when she remembers. Patient has not taken any Tylenol or ibuprofen for her discomfort. - REPRODUCTIVE Reproductive: DENIES: : Past Medical History - General Information source: Patient - Social History Smoking Status: Never Smoker Frequency of alcohol use: None Drug Abuse: None Lives with: Family Family History: Reviewed & Not Pertinent - Past Medical History Cardiac Medical History: Reports: None Denies: Hx Coronary Artery Disease, Hx Heart Attack, Hx Hypertension Pulmonary Medical History: Reports: Hx Bronchitis Denies: Hx Asthma, Hx COPD, Hx Pneumonia EENT Medical History: Reports: None Neurological Medical History: Reports: None. Denies: Hx Cerebrovascular Accident, Hx Seizures Endocrine Medical History: Reports: Hx Diabetes Mellitus Type 1, Hx Hypothyroidism Renal/ Medical History: Reports: Hx Kidney Stones - 2010. Denies: Hx Peritoneal Dialysis Malignancy Medical History: Reports: None GI Medical History: Reports: None. Denies: Hx Hepatitis, Hx Hiatal Hernia, Hx Ulcer Musculoskeletal Medical History: Reports Hx Arthritis Skin Medical History: Reports None Psychiatric Medical History: Reports: None Traumatic Medical History: Reports: None Infectious Medical History: Reports: None. Denies: Hx Hepatitis Past Surgical History: Reports: Hx Orthopedic Surgery, Other - eye. Denies: Hx Hysterectomy, Hx Mastectomy, Hx Open Heart Surgery, Hx Pacemaker - Immunizations Hx Diphtheria, Pertussis, Tetanus Vaccination: Yes Vertical Provider Document - CONSTITUTIONAL Agree With Documented VS: Yes Exam Limitations: No Limitations General Appearance: No Apparent Distress Notes: GENERAL: Well-appearing, well-nourished and in no acute distress. HEAD: Atraumatic, normocephalic. EYES: Pupils equal round and reactive to light, extraocular movements intact, sclera anicteric, conjunctiva are normal. ENT: TMs normal, nares patent, oropharynx clear without exudates. Moist mucous membranes. NECK: Normal range of motion, supple without lymphadenopathy or JVD. LUNGS: Breath sounds clear to auscultation bilaterally and equal. No wheezes rales or rhonchi. Tenderness noted to the anterior lower left ribs, no edema, ecchymosis, erythema, abrasion or laceration. HEART: Regular rate and rhythm without murmurs, rubs or gallops. ABDOMEN: Soft, nontender, normoactive bowel sounds. No guarding, no rebound. No masses appreciated. BACK: No cervical, thoracic, lumbar midline tenderness. No saddle anesthesia, normal distal neurovascular exam. GENITOURINARY: Deferred. EXTREMITIES: Normal range of motion, no pitting or edema. No clubbing or cyanosis. NEUROLOGICAL: Cranial nerves II through XII grossly intact. Normal speech, normal gait. PSYCH: Normal mood, normal affect. SKIN: Warm, Dry, normal turgor, no rashes or lesions noted. - INFECTION CONTROL TRAVEL OUTSIDE OF THE [place] IN LAST 30 DAYS: No Course - Re-evaluation Re-evalutation: 04/18/19 09:09 We will give patient Tylenol for her discomfort and obtain a chest x-ray to include a left ribs. Patient is nontoxic-appearing in no acute distress. 04/18/19 10:01 Patient resting comfortably on stretcher no acute distress. I did discuss the chest x-ray and rib x-ray results with the patient. There is no acute fracture. I did inform the patient that she may continue to use a pillow to help brace the left side as she coughs and deep breathes to help prevent pneumonia. I did inform the patient to not use abdominal binders or splinting as this can lead to shallow breathing and infection. Patient verbalized understanding. - Vital Signs Vital signs: Temp Pulse Resp BP Pulse Ox 97.5 F 64 16 132/60 H 98 04/18/19 07:24 04/18/19 07:24 04/18/19 07:24 04/18/19 07:26 04/18/19 07:24 - Diagnostic Test Radiology reviewed: Image reviewed, Reports reviewed Radiology results interpreted by me: 04/18/19 09:52 Ribs w/Chest X-Ray 04/18/19 09:06 IMPRESSION: NO PNEUMOTHORAX. NO DISPLACED RIB FRACTURES. Discharge - Discharge Clinical Impression: Contusion of rib on left side Qualifiers: Encounter type: initial encounter Qualified Code(s): S20.212A - Contusion of l eft front wall of thorax, initial encounter Condition: Stable Disposition: HOME, SELF-CARE Additional Instructions: Today you were seen in the emergency department for left rib pain after a fall. Your chest x-ray was negative which did not show a puncture of the lung or any nondisplaced rib fractures. Since this was negative you are being diagnosed with bruised ribs. It usually takes a few weeks for these injured ribs to heal. Please continue to cough and take a deep breath at least every hour or 2 to help prevent lung complications. Do not engage in strenuous activity. Please return to the emergency department if you develop fever, persistent cough, coughing up blood or shortness of breath, increasing pain weakness, lightheadedness or fainting. If your symptoms change please return to the emergency department. You may continue to use a pillow to help brace the left side if this helps with comfort. Please take Tylenol and ibuprofen as needed for pain. Rib Injuries and Fractures You have been diagnosed as having either bruised or broken ribs. These two injuries are treated in the same way. It will usually take four to six weeks for these injured ribs to heal. Sometimes, rib belts or anesthetic injections of the chest wall help reduce the pain. If you are using a rib belt, you should cough or take a deep breath at least every hour or two to prevent lung complications. You should not engage in any strenuous physical activity until released by your physician. The usual rule is "if it hurts, don't do it." Rib fractures can lead to serious lung complications including lung collapse, hemorrhage, and pneumonia. You should call the physician or return at once if any of the following occur: (1) Fever or chills. (2) Persistent cough, coughing up blood, or shortness of breath. (3) Increasing pain. (4) Weakness, lightheadedness, or fainting. Rib Contusion You have been diagnosed as having bruised ribs. It will usually take a few weeks for these injured ribs to heal. You should cough or take a deep breath at least every hour or two to prevent lung complications. You should not engage in any strenuous physical activity until released by your physician. The usual rule is "if it hurts, don't do it." Return if you develop any of the following: (1) Fever or chills. (2) Persistent cough, coughing up blood, or shortness of breath. (3) Increasing pain. (4) Weakness, lightheadedness, or fainting. Referrals: [facility] [Primary Care Provider] - Follow up as needed
--- NOTE | 2019-04-18 09:29 | RADIOLOGY REPORT (SQ) ---
EXAM DESCRIPTION: RIBS LEFT W/PA CHEST COMPLETED DATE/TIME: 04/18/2019 9:20 am REASON FOR STUDY: Fall, left rib pain COMPARISON: 11/17/2018 chest films. TECHNIQUE: Frontal view of the chest and additional views of the left ribs acquired. NUMBER OF VIEWS: 3 LIMITATIONS: None. FINDINGS: FRONTAL CXR: No pneumothorax. No pleural effusion. No atelectasis or infiltrates. RIBS: No displaced rib fractures. No lytic or blastic bony lesions. OTHER: No other significant finding. IMPRESSION: NO PNEUMOTHORAX. NO DISPLACED RIB FRACTURES. COMMENT: SITE OF TRAUMA/COMPLAINT MARKED/STAMP COMPLETED: NO. TECHNICAL DOCUMENTATION: JOB ID: [id number] [employer]- All Rights Reserved Reading location - IP/workstation name: [email or web address]
[2019-04-18 10:29] VITALS: BP 133/75
== END 2019-04-18 10:34 | disposition home or self-care (01) ==
LOC: ER 07:17
DX: S20.212A Contusion of left front wall of thorax, initial encounter (principal); R07.1 Chest pain on breathing; W01.0XXA Fall on same level from slipping, tripping and stumbling without subsequent striking against object, initial encounter; Y92.512 Supermarket, store or market as the place of occurrence of the external cause; E10.9 Type 1 diabetes mellitus without complications
CPT/HCPCS: 99283

== ENCOUNTER 2019-05-05 16:10 | Emergency (ER) | payer OTHER ==
[2019-05-05 16:35] VITALS: BP 145/63
--- NOTE | 2019-05-05 17:05 | ER Document Report ---
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 Patient states that in anticipation of her application for employment she knows that she will have to have a chest x-ray showing that she does not have TB. Patient states she does not have insurance and needs to have an x-ray performed. Patient is requesting for us to do a screening x-ray for her preemployment. Patient denies any cough fever or weight loss. Patient additionally has chapped lips and tugged at some skin that is flapping and would like it to be trimmed. Patient was seen here in the emergency department 2 weeks ago after a rib injury and had a chest x-ray with rib series performed. Associated Symptoms: denies: Chest pain, Nonproductive cough, Productive cough, Fever Exacerbated by: Denies Relieved by: Denies Similar symptoms previously: Yes Recently seen / treated by doctor: Yes - ROS ROS below otherwise negative: Yes Systems Reviewed and Negative: Yes All other systems reviewed and negative - CONSTITUTIONAL Constitutional: DENIES: Fever, Chills - CARDIOVASCULAR Cardiovascular: DENIES: Chest pain - RESPIRATORY Respiratory: DENIES: Trouble Breathing, Coughing - REPRODUCTIVE Reproductive: DENIES: : - DERM Skin Color: Normal Skin Problems: None Past Medical History - General Information source: Patient - Social History Smoking Status: Former Smoker Frequency of alcohol use: None Drug Abuse: None Occupation: none Family History: Reviewed & Not Pertinent Patient has suicidal ideation: No Patient has homicidal ideation: No - Past Medical History Cardiac Medical History: Reports: Hx Hypercholesterolemia Pulmonary Medical History: Reports: Hx Bronchitis Neurological Medical History: Denies: Hx Cerebrovascular Accident, Hx Seizures Endocrine Medical History: Reports: Hx Diabetes Mellitus Type 1, Hx Diabetes Mellitus Type 2, Hx Hypothyroidism Renal/ Medical History: Reports: Hx Kidney Stones - 2010. Denies: Hx Peritoneal Dialysis Musculoskeletal Medical History: Reports Hx Arthritis Infectious Medical History: Denies: Hx Hepatitis Past Surgical History: Reports: Hx Orthopedic Surgery, Other - eye - Immunizations Hx Diphtheria, Pertussis, Tetanus Vaccination: Yes Vertical Provider Document - CONSTITUTIONAL Agree With Documented VS: Yes Exam Limitations: No Limitations General Appearance: WD/WN, No Apparent Distress - INFECTION CONTROL TRAVEL OUTSIDE OF THE [place] IN LAST 30 DAYS: No - HEENT HEENT: Atraumatic, Normocephalic - NECK Neck: Normal Inspection - RESPIRATORY Respiratory: Breath Sounds Normal, No Respiratory Distress - CARDIOVASCULAR Cardiovascular: Regular Rate, Regular Rhythm - BACK Back: Normal Inspection - MUSCULOSKELETAL/EXTREMETIES Musculoskeletal/Extremeties: MAEW, FROM, Non-Tender - NEURO Level of Consciousness: Awake, Alert, Appropriate Motor/Sensory: No Motor Deficit - DERM Integumentary: Warm, Dry Notes: Small area of peeling skin to left lip Course - Vital Signs Vital signs: Temp Pulse Resp BP Pulse Ox 98.4 F 72 18 145/63 H 98 05/05/19 16:33 05/05/19 16:33 05/05/19 16:33 05/05/19 16:33 05/05/19 16:33 - Diagnostic Test Radiology reviewed: Reports reviewed - Reviewed chest x-ray report from 04/18/2019 Discharge - Discharge Clinical Impression: request for CXR to screen for TB, Chapped lips Condition: Stable Disposition: HOME, SELF-CARE Additional Instructions: Return immediately for any new or worsening symptoms Followup with your primary care provider, call tomorrow to make a followup appointment Your primary doctor can order screening tests such as chest x-ray to rule out TB. Frequently employer's will send you for TB screening if they require it for employment Your chest x-ray performed on 04/18/2019 did not have any suspicious lesions that would warrant additional testing for TB Referrals: [facility] [Primary Care Provider] - Follow up as needed
== END 2019-05-05 17:10 | disposition home or self-care (01) ==
LOC: ER 16:10
DX: Z11.1 Encounter for screening for respiratory tuberculosis (principal); T69.8XXA Other specified effects of reduced temperature, initial encounter; E11.9 Type 2 diabetes mellitus without complications; Z87.891 Personal history of nicotine dependence
CPT/HCPCS: 99281

== ENCOUNTER 2019-05-12 19:18 | Emergency (ER) | payer OTHER ==
--- NOTE | 2019-05-12 19:59 | ER Document Report ---
HPI - HPI Time Seen by Provider: 05/12/19 19:55 Pain Level: 4 Notes: Patient is a 58-year-old female who presents complaining of right lateral foot pain over the past couple weeks without obvious injury. Patient states that about 3 weeks ago she had a fall and injured her ribs, but does not recall injuring her foot. Patient has not noticed any bruising or swelling. No redness. She is able to ambulate, but does notice discomfort when she weight bears. No other concerns or complaints. The pain does not radiate. Denies any headache, fever, neck pain, URI, sore throat, chest pain, palpitations, syncope, cough, shortness of breath, wheeze, dyspnea, abdominal pain, nausea/vomiting/diarrhea, urinary retention, dysuria, hematuria, loss of control of bowel or bladder, numbness/tingling, muscle paralysis/weakness, or rash. - ROS Systems Reviewed and Negative: Yes All other systems reviewed and negative - REPRODUCTIVE Reproductive: DENIES: : Past Medical History - Social History Smoking Status: Never Smoker Family History: Reviewed & Not Pertinent - Past Medical History Cardiac Medical History: Reports: Hx Hypercholesterolemia Denies: Hx Coronary Artery Disease, Hx Heart Attack, Hx Hypertension Pulmonary Medical History: Reports: Hx Bronchitis Denies: Hx Asthma, Hx COPD, Hx Pneumonia Neurological Medical History: Denies: Hx Cerebrovascular Accident, Hx Seizures Endocrine Medical History: Reports: Hx Diabetes Mellitus Type 1, Hx Diabetes Mellitus Type 2, Hx Hypothyroidism Renal/ Medical History: Reports: Hx Kidney Stones - 2010. Denies: Hx Peritoneal Dialysis GI Medical History: Denies: Hx Hepatitis, Hx Hiatal Hernia, Hx Ulcer Musculoskeletal Medical History: Reports Hx Arthritis Infectious Medical History: Denies: Hx Hepatitis Past Surgical History: Reports: Hx Orthopedic Surgery, Other - eye. Denies: Hx Hysterectomy, Hx Mastectomy, Hx Open Heart Surgery, Hx Pacemaker - Immunizations Hx Diphtheria, Pertussis, Tetanus Vaccination: Yes Vertical Provider Document - CONSTITUTIONAL Agree With Documented VS: Yes Notes: PHYSICAL EXAMINATION: GENERAL: Well-appearing, well-nourished and in no acute distress. LUNGS: Breath sounds clear to auscultation bilaterally and equal. No wheezes rales or rhonchi. HEART: Regular rate and rhythm without murmurs, rubs, gallops. Musculoskeletal: Rt foot/ankle: No ecchymosis, swelling, or deformity. FROM to passive/active. Strength 5+/5. N/V intact distal. + tenderness to the lateral foot. No bony tenderness of the ankle or other areas of the foot. Achilles intact. Lis Franc maneuver neg. Anterior drawer neg. Extremities: No cyanosis, clubbing, or edema b/l. Peripheral pulses 2+. Capillary refill less than 3 seconds. NEUROLOGICAL: Normal speech, normal gait. Normal sensory, motor exams PSYCH: Normal mood, normal affect. SKIN: Warm, Dry, normal turgor, no rashes or lesions noted. - INFECTION CONTROL TRAVEL OUTSIDE OF THE [place] IN LAST 30 DAYS: No Course - Re-evaluation Re-evalutation: 05/12/19 19:57 Patient is an afebrile, well-hydrated, 58-year-old female who presents to the ED with Rt foot pain. Vitals are acceptable without any significant tachycardia, tachypnea, or hypoxia. PE is otherwise unremarkable for any neurovascular compromise, obvious tendon/ligament rupture, obvious fracture/dislocation, septic joint. X-ray was unremarkable for any acute pathology. Patient is nontoxic-appearing. Patient is able to ambulate and weight-bear. No other labs or imaging warranted at this time based on H&P. Conservative measures otherwise for symptoms. Recheck with your PCM in 3-5 days. Consider consult podiatry. Return to the ED with any worsening/concerning symptoms otherwise as reviewed in discharge. Patient is in agreement. - Vital Signs Vital signs: Temp Pulse Resp BP Pulse Ox 98.2 F 70 18 130/52 H 96 05/12/19 19:33 05/12/19 19:33 05/12/19 19:33 05/12/19 19:33 05/12/19 19:33 Discharge - Discharge Clinical Impression: Right foot pain Condition: Stable Disposition: HOME, SELF-CARE Additional Instructions: Rest, Ice, Compression, Elevation Tylenol/ibuprofen as needed Light stretches daily Strength exercises as able Moist heat and massage may help F/u with your PCP in 3-5 days for a recheck Consider consult(s) with Orthopedics/physical therapy/podiatry for ongoing/worsening symptoms Return to the ED with any worsening symptoms and/or development of fever, headache, chest pain, palpitations, syncope, shortness of breath, trouble breathing, abdominal pain, n/v/d, muscle weakness/paralysis, numbness/tingling, swelling, redness, or other worsening symptoms that are concerning to you. Forms: Elevated Blood Pressure Referrals: [facility] [Primary Care Provider] - Follow up as needed AVELINA AC DPM [ACTIVE STAFF] - Follow up as needed
--- NOTE | 2019-05-12 20:13 | RADIOLOGY REPORT (SQ) ---
EXAM DESCRIPTION: XR FOOT 3 OR MORE VIEWS COMPLETED DATE/TME: 05/12/2019 19:33 CLINICAL HISTORY: 58 years, Female, rt foot pain COMPARISON: None. NUMBER OF VIEWS: 3 TECHNIQUE: Three views of the RIGHT foot were obtained in AP, lateral and oblique projection. LIMITATIONS: None. FINDINGS: No fracture or dislocation. The bones appear to be diffusely demineralized. The joint spaces are preserved. The soft tissues appear to be within normal limits. Mild degenerative changes noted at the first digit metatarsophalangeal joint. Bulky plantar heel spur. Degenerative change of the midfoot articulations. IMPRESSION: Degenerative change without acute radiographic abnormality. copyright 2010 [employer]- All Rights Reserved
[2019-05-12 20:37] VITALS: BP 128/60
== END 2019-05-12 20:41 | disposition home or self-care (01) ==
LOC: ER 19:18
DX: M79.671 Pain in right foot (principal); E11.9 Type 2 diabetes mellitus without complications; Z91.81 History of falling

== ENCOUNTER 2019-06-19 21:49 | Emergency (ER) | payer OTHER ==
[2019-06-19 22:37] LABS: APPEARANCE,URINE SLIGHTLY-CLOUDY; BILIRUBIN,URINE NEGATIVE (NEGATIVE); COLOR,URINE YELLOW; GLUCOSE, URINE 150 mg/dL (NEGATIVE); KETONES,URINE NEGATIVE (NEGATIVE); LEUKOCYTE ESTERASE,URINE TRACE (NEGATIVE); NITRITE,URINE NEGATIVE (NEGATIVE); PROTEIN,URINE NEGATIVE (NEGATIVE); URINE SPECIFIC GRAVITY 1.023; UROBILINOGEN,URINE NEGATIVE mg/dL (<2.0)
[2019-06-19] MEDS ORDERED: KETOROLAC TROMETHAMINE INJ/PF 30 MG/1 ML SDV IV ONE (23:39)
--- NOTE | 2019-06-19 23:41 | ER Document Report ---
ED Medical Screen (RME) - General Chief Complaint: Flank Pain Stated Complaint: SHARP BACK PAIN Time Seen by Provider: 06/19/19 23:38 Primary Care Provider: CHRISTIANO DASILVA [Primary Care Provider] - Follow up as needed Notes: Patient is a 58-year-old female presents to the emergency department for left flank pain. States she was sitting at [employer] around 1900 hrs. when she developed sudden pain in her left flank region. States she also has some generalized back pain. Patient states she does have a history of kidney stones. GENERAL: Alert, interacts well. No acute distress. ABDOMEN: Soft, non-tender. Non-distended. Bowel sounds present in all 4 quadrants. Left CVA tenderness noted I have greeted and performed a rapid initial assessment of this patient. A comprehensive ED assessment and evaluation of the patient, analysis of test results and completion of the medical decision making process will be conducted by additional ED providers. I have specifically instructed the patient or family members with the patient to immediately return to any nursing staff should anything change in the patient's condition or with their chief complaint. This medical record was dictated with voice recognizing software. There may be grammatical, syntax errors that are unintended. TRAVEL OUTSIDE OF THE [place] IN LAST 30 DAYS: No - Related Data Allergies/Adverse Reactions: loratadine [From Claritin] Allergy (Verified 05/05/19 16:12) povidone-iodine [From Betadine] Allergy (Verified 05/05/19 16:12) Soap [From Betadine] Allergy (Verified 05/05/19 16:12) triamcinolone [From Nasacort] Allergy (Verified 05/05/19 16:12) Past Medical History - Past Medical History Cardiac Medical History: Reports: Hx Hypercholesterolemia Denies: Hx Coronary Artery Disease, Hx Heart Attack, Hx Hypertension Pulmonary Medical History: Reports: Hx Bronchitis Denies: Hx Asthma, Hx COPD, Hx Pneumonia Neurological Medical History: Denies: Hx Cerebrovascular Accident, Hx Seizures Endocrine Medical History: Reports: Hx Diabetes Mellitus Type 1, Hx Diabetes Mellitus Type 2, Hx Hypothyroidism Renal/ Medical History: Reports: Hx Kidney Stones - 2010. Denies: Hx Peritoneal Dialysis GI Medical History: Denies: Hx Hepatitis, Hx Hiatal Hernia, Hx Ulcer Musculoskeltal Medical History: Reports Hx Arthritis Infectious Medical History: Denies: Hx Hepatitis Past Surgical History: Reports: Hx Orthopedic Surgery, Other - eye. Denies: Hx Hysterectomy, Hx Mastectomy, Hx Open Heart Surgery, Hx Pacemaker - Immunizations Hx Diphtheria, Pertussis, Tetanus Vaccination: Yes Physical Exam - Vital signs Vitals: Temp Pulse Resp BP Pulse Ox 98.3 F 66 16 131/63 H 97 06/19/19 22:17 06/19/19 22:17 06/19/19 22:17 06/19/19 22:17 06/19/19 22:17 Course - Vital Signs Vital signs: Temp Pulse Resp BP Pulse Ox 98.3 F 66 16 131/63 H 97 06/19/19 22:17 06/19/19 22:17 06/19/19 22:17 06/19/19 22:17 06/19/19 22:17 - Laboratory Laboratory results interpreted by me: 06/19/19 22:00 Urine Glucose (UA) 150 H Ur Leukocyte Esterase TRACE H Doctor's Discharge - Discharge Referrals: [facility] [Primary Care Provider] - Follow up as needed
[2019-06-20] MEDS ORDERED: RINGERS SOLUTION,LACTATED 1,000 ML IV ONE (00:12)
[2019-06-20] MEDS ORDERED: MORPHINE SULFATE 10 MG/ML INJ IV ONE (00:21)
[2019-06-20] MEDS ORDERED: ONDANSETRON HCL INJ/PF 4 MG/2 ML SDV IV ONE (00:21)
--- NOTE | 2019-06-20 00:25 | ER Document Report ---
ED General - General Chief Complaint: Flank Pain Stated Complaint: SHARP BACK PAIN Time Seen by Provider: 06/19/19 23:38 Primary Care Provider: [facility] [Primary Care Provider] - Follow up as needed TRAVEL OUTSIDE OF THE [place] IN LAST 30 DAYS: No - HPI Notes: Patient presents with sudden onset of sharp stabbing left-sided flank pain started approximately 7 PM tonight. She states it feels similar to history of kidney stone she has had in the past. No recent fevers or illnesses. Mild nauseous but no vomiting. He also states that it briefly went into her shoulder area on the left. She is diabetic. She denies any chest pain associated with her symptoms. - Related Data Allergies/Adverse Reactions: loratadine [From Claritin] Allergy (Verified 05/05/19 16:12) povidone-iodine [From Betadine] Allergy (Verified 05/05/19 16:12) Soap [From Betadine] Allergy (Verified 05/05/19 16:12) triamcinolone [From Nasacort] Allergy (Verified 05/05/19 16:12) Past Medical History - Social History Smoking Status: Never Smoker Family History: Reviewed & Not Pertinent Patient has suicidal ideation: No Patient has homicidal ideation: No - Past Medical History Cardiac Medical History: Reports: Hx Hypercholesterolemia Denies: Hx Coronary Artery Disease, Hx Heart Attack, Hx Hypertension Pulmonary Medical History: Reports: Hx Bronchitis Denies: Hx Asthma, Hx COPD, Hx Pneumonia Neurological Medical History: Denies: Hx Cerebrovascular Accident, Hx Seizures Endocrine Medical History: Reports: Hx Diabetes Mellitus Type 1, Hx Diabetes Mellitus Type 2, Hx Hypothyroidism Renal/ Medical History: Reports: Hx Kidney Stones - 2010. Denies: Hx Peritoneal Dialysis GI Medical History: Denies: Hx Hepatitis, Hx Hiatal Hernia, Hx Ulcer Musculoskeletal Medical History: Reports Hx Arthritis Infectious Medical History: Denies: Hx Hepatitis Past Surgical History: Reports: Hx Orthopedic Surgery, Other - eye. Denies: Hx Hysterectomy, Hx Mastectomy, Hx Open Heart Surgery, Hx Pacemaker - Immunizations Hx Diphtheria, Pertussis, Tetanus Vaccination: Yes Review of Systems - Review of Systems Constitutional: No symptoms reported EENT: No symptoms reported Cardiovascular: No symptoms reported Respiratory: No symptoms reported Gastrointestinal: No symptoms reported Genitourinary: No symptoms reported Female Genitourinary: No symptoms reported Musculoskeletal: See HPI Skin: No symptoms reported Hematologic/Lymphatic: No symptoms reported Neurological/Psychological: No symptoms reported Physical Exam - Vital signs Vitals: Temp Pulse Resp BP Pulse Ox 98.3 F 66 16 131/63 H 97 06/19/19 22:17 06/19/19 22:17 06/19/19 22:17 06/19/19 22:17 06/19/19 22:17 - General General appearance: Appears well, Alert In distress: Mild - HEENT Head: Normocephalic, Atraumatic Eyes: Normal Conjunctiva: Normal Cornea: Normal Extraocular movements intact: Yes Pupils: PERRL - Respiratory Respiratory status: No respiratory distress Chest status: Nontender Breath sounds: Normal Chest palpation: Normal - Cardiovascular Rhythm: Regular Heart sounds: Normal auscultation Murmur: No - Abdominal Inspection: Normal Distension: No distension Bowel sounds: Normal Tenderness: Nontender - Back Back: Normal. No: CVA tenderness - Neurological Neuro grossly intact: Yes Cognition: Normal Orientation: AAOx4 Course - Re-evaluation Re-evalutation: 06/20/19 00:23 Patient presents with sudden onset of sharp stabbing left-sided flank pain started approximately 7 PM tonight. She states it feels similar to history of kidney stone she has had in the past. No recent fevers or illnesses. Mild nauseous but no vomiting. She states that she has not any chest pain but the pain radiating to both of her trapezius shoulder/muscle area. The pain now is more isolated to her left flank. - Vital Signs Vital signs: Temp Pulse Resp BP Pulse Ox 98 F 60 16 120/62 97 06/20/19 08:13 06/20/19 08:13 06/20/19 08:13 06/20/19 08:13 06/20/19 08:13 - Laboratory Result Diagrams: 06/20/19 01:05 06/20/19 01:05 Laboratory results interpreted by me: 06/19/19 06/20/19 06/20/19 22:00 01:05 01:05 WBC 3.9 L Sodium 136.4 L Glucose 213 H Urine Glucose (UA) 150 H Ur Leukocyte Esterase TRACE H Discharge - Discharge Clinical Impression: Flank pain Condition: Stable Disposition: HOME, SELF-CARE Instructions: Flank Pain ([facility]) Prescriptions: Oxycodone HCl/Acetaminophen [Percocet 5-325 mg Tablet] 1 tab PO ASDIR PRN #15 tab PRN Reason: Forms: Return to Work Referrals: [facility] [Primary Care Provider] - Follow up as needed
[2019-06-20 01:17] LABS: ABSOLUTE LYMPHOCYTES (AUTO) 1.2 10^3/uL (0.5-4.7); ABSOLUTE MONOCYTES (AUTO) 0.4 10^3/uL (0.1-1.4); ABSOLUTE NEUT (AUTO) 2.3 10^3/uL (1.7-8.2); BASOPHILS % (AUTO) 1.1 % (0-2); EOSINOPHILS % (AUTO) 0.3 % (0-6); HEMATOCRIT 39.3 % (36.0-47.0); HEMOGLOBIN 13.5 g/dL (12.0-15.5); LYMPHOCYTES % (AUTO) 30.6 % (13-45); MEAN CORPUSCULAR HEMOGLOBIN 32.6 pg (27.0-33.4); MEAN CORPUSCULAR HGB CONC 34.5 g/dL (32.0-36.0); MEAN CORPUSCULAR VOLUME 95 fl (80-97); MONOCYTES % (AUTO) 10.6 % (3-13); PLATELET COUNT 230 10^3/uL (150-450); RED BLOOD COUNT 4.15 10^6/uL (3.72-5.28); RED CELL DISTRIBUTION WIDTH 13.5 % (11.5-14.0); SEGMENTED NEUTROPHILS % (AUTO) 57.4 % (42-78); TOTAL CELLS COUNTED % (AUTO) 100 %; WHITE BLOOD COUNT 3.9 10^3/uL (4.0-10.5)
[2019-06-20 01:32] LABS: ALBUMIN 3.8 g/dL (3.5-5.0); ALKALINE PHOSPHATASE 87 U/L (38-126); ANION GAP 7 (5-19); ASPARTATE AMINO TRANSFERASE 33 U/L (14-36); BILIRUBIN,TOTAL 0.4 mg/dL (0.2-1.3); BLOOD UREA NITROGEN 14 mg/dL (7-20); CALCIUM 9.2 mg/dL (8.4-10.2); CARBON DIOXIDE 26 mmol/L (22-30); CHLORIDE 103 mmol/L (98-107); GLUCOSE 213 mg/dL (75-110); TOTAL PROTEIN 6.5 g/dL (6.3-8.2)
--- NOTE | 2019-06-20 03:32 | RADIOLOGY REPORT (SQ) ---
EXAM DESCRIPTION: CT CHEST ANGIOGRAPHY WITHOUT THEN WITH IV CONTRAST, CT ABDOMEN PELVIS WITHOUT THEN WITH IV CONTRAST COMPLETED DATE/TME: 06/20/2019 00:22 CLINICAL HISTORY: 58 years Female, eval for dissection Comparison: None. Technique: IV contrast. Coronal and sagittal reformat. 3d reconstruction. This exam was performed according to our departmental dose-optimization program, which includes automated exposure control, adjustment of the mA and/or kV according to patient size and/or use of iterative reconstruction technique.[facility]: Dose Right [facility]: CareDose [facility]: Dose Right [facility]: Teradose 4D [facility]: [email or web address] LIMITATIONS: None Findings: CTA: No evidence of aortic aneurysm, dissection, or occlusion. No evidence of pulmonary embolus. Patent major vessels of the abdomen and pelvis including the celiac, mesenteric, renal , and iliac arteries. No vasculitides. No hemorrhage/hematoma. Vascular system appears otherwise unremarkable. Atelectasis/scar. Old granulomatous disease. No ascites. No pneumoperitoneum. Normal appendix. No gross evidence of gallbladder inflammation, hepatobiliary obstruction, or portal vein defect. No bowel obstruction. No hydronephrosis or hydroureter. No renal/ureteral stone. No gross evidence of thecal sac/cord or nerve root compression. Inferior neck, axillae, mediastinum, airway, heart, liver, gallbladder, pancreas, spleen, adrenals, renal system, gastrointestinal tract, pelvic organs, lymphatics, vasculature, and musculoskeleton appear otherwise unremarkable. Impression: No acute CTA findings of the aorta. No acute cardiopulmonary findings.
--- NOTE | 2019-06-20 04:07 | ER Document Report ---
ED General - General Chief Complaint: Flank Pain Stated Complaint: SHARP BACK PAIN Time Seen by Provider: 06/19/19 23:38 Primary Care Provider: [facility] [Primary Care Provider] - Follow up as needed TRAVEL OUTSIDE OF THE [place] IN LAST 30 DAYS: No - HPI Notes: I assumed care of this patient from Dr. Gallo at the end of his shift, pending CT report and disposition. Please see his note for full history and physical. Briefly, this is a 58-year-old female who presented with sudden onset colicky flank pain radiating to her shoulder. Patient states he feels he might have had a kidney stone. She denies any fever or chills. No chest pain. Patient feels much better after initial evaluation and management by Dr. Gallo. CT scan pending at signout. - Related Data Allergies/Adverse Reactions: loratadine [From Claritin] Allergy (Verified 05/05/19 16:12) povidone-iodine [From Betadine] Allergy (Verified 05/05/19 16:12) Soap [From Betadine] Allergy (Verified 05/05/19 16:12) triamcinolone [From Nasacort] Allergy (Verified 05/05/19 16:12) Past Medical History - Social History Smoking Status: Never Smoker Family History: Reviewed & Not Pertinent Patient has suicidal ideation: No Patient has homicidal ideation: No - Past Medical History Cardiac Medical History: Reports: Hx Hypercholesterolemia Denies: Hx Coronary Artery Disease, Hx Heart Attack, Hx Hypertension Pulmonary Medical History: Reports: Hx Bronchitis Denies: Hx Asthma, Hx COPD, Hx Pneumonia Neurological Medical History: Denies: Hx Cerebrovascular Accident, Hx Seizures Endocrine Medical History: Reports: Hx Diabetes Mellitus Type 1, Hx Diabetes Mellitus Type 2, Hx Hypothyroidism Renal/ Medical History: Reports: Hx Kidney Stones - 2010. Denies: Hx Peritone al Dialysis GI Medical History: Denies: Hx Hepatitis, Hx Hiatal Hernia, Hx Ulcer Musculoskeletal Medical History: Reports Hx Arthritis Infectious Medical History: Denies: Hx Hepatitis Past Surgical History: Reports: Hx Orthopedic Surgery, Other - eye. Denies: Hx Hysterectomy, Hx Mastectomy, Hx Open Heart Surgery, Hx Pacemaker - Immunizations Hx Diphtheria, Pertussis, Tetanus Vaccination: Yes Physical Exam - Vital signs Vitals: Temp Pulse Resp BP Pulse Ox 98.3 F 66 16 131/63 H 97 06/19/19 22:17 06/19/19 22:17 06/19/19 22:17 06/19/19 22:17 06/19/19 22:17 Course - Re-evaluation Re-evalutation: 06/20/19 04:04 Patient reevaluated. She feels much better labs and CT reviewed. I discussed CT findings with radiologist. There is no acute abnormality. No dissection or renal colic. Patient is stable for discharge. I discussed follow-up with patient. - Vital Signs Vital signs: Temp Pulse Resp BP Pulse Ox 98.3 F 66 16 131/63 H 97 06/19/19 22:17 06/19/19 22:17 06/19/19 22:17 06/19/19 22:17 06/19/19 22:17 - Laboratory Result Diagrams: 06/20/19 01:05 06/20/19 01:05 Laboratory results interpreted by me: 06/19/19 06/20/19 06/20/19 22:00 01:05 01:05 WBC 3.9 L Sodium 136.4 L Glucose 213 H Urine Glucose (UA) 150 H Ur Leukocyte Esterase TRACE H - Diagnostic Test Radiology reviewed: Reports reviewed Discharge - Discharge Clinical Impression: Flank pain Condition: Stable Disposition: HOME, SELF-CARE Instructions: Flank Pain ([facility]) Prescriptions: Oxycodone HCl/Acetaminophen [Percocet 5-325 mg Tablet] 1 tab PO ASDIR PRN #15 tab PRN Reason: Referrals: [facility] [Primary Care Provider] - Follow up as needed
[2019-06-20 08:30] VITALS: BP 120/62
--- NOTE | 2019-06-20 08:51 | EKG REPORT ---
SEVERITY:- BORDERLINE ECG - SINUS RHYTHM PROBABLE LEFT ATRIAL ABNORMALITY : Confirmed by: Eliana Rocha 20-Jun-2019 08:49:44
== END 2019-06-20 08:13 | disposition home or self-care (01) ==
LOC: ER 21:49
DX: R10.9 Unspecified abdominal pain (principal); M54.9 Dorsalgia, unspecified; E78.00 Pure hypercholesterolemia, unspecified; E11.9 Type 2 diabetes mellitus without complications; E03.9 Hypothyroidism, unspecified; Z87.442 Personal history of urinary calculi
CPT/HCPCS: 93005; 36415; 83690; 85025; 80053; 81001; 84484; 71275; 74174; 93010; J1885; J2270; J2405; J7120; 96361; 96374; 96375; 99284

== ENCOUNTER 2019-06-20 08:56 | Emergency (ER) | payer OTHER ==
[2019-06-20] MEDS ORDERED: LIDOCAINE 5% (700 MG) TRANSDERMAL ADH..PATCH TP ONE (09:40)
[2019-06-20] MEDS ORDERED: MORPHINE SULFATE 10 MG/ML INJ IV ONE (09:41)
--- NOTE | 2019-06-20 09:43 | ER Document Report ---
ED Medical Screen (RME) - General Chief Complaint: Flank Pain Stated Complaint: FLANK PAIN Time Seen by Provider: 06/20/19 09:18 Primary Care Provider: [facility] [Primary Care Provider] - Follow up as needed Notes: Patient presents complaining of left flank pain and intermittent shoulder and upper back pain. Patient states symptoms started around 7 PM yesterday. Patient was evaluated in the emergency department last night for this complaint and discharged early this morning. Patient states that while she was waiting for her ride she had a sudden return of her upper back and shoulder pain with s hortness of breath that radiated down to her left flank area. Patient states that she has had kidney stones in the past and is concerned about this today. Patient denies nausea or vomiting although states that when the pain gets severe it makes her nauseous. Patient denies any cough or urinary symptoms. Patient does not feel that her pain is musculoskeletal in nature. Patient feels that upper back and shoulder pain at present is resolved and she only has the left flank pain at this time. I have greeted and performed a rapid initial assessment of this patient. A comprehensive ED assessment and evaluation of the patient, analysis of test results and completion of the medical decision making process will be conducted by additional ED providers. TRAVEL OUTSIDE OF THE [place] IN LAST 30 DAYS: No - Related Data Allergies/Adverse Reactions: loratadine [From Claritin] Allergy (Verified 05/05/19 16:12) povidone-iodine [From Betadine] Allergy (Verified 05/05/19 16:12) Soap [From Betadine] Allergy (Verified 05/05/19 16:12) triamcinolone [From Nasacort] Allergy (Verified 05/05/19 16:12) Past Medical History - Social History Frequency of alcohol use: Occasional Drug Abuse: None - Past Medical History Cardiac Medical History: Reports: Hx Hypercholesterolemia Denies: Hx Coronary Artery Disease, Hx Heart Attack, Hx Hypertension Pulmonary Medical History: Reports: Hx Bronchitis Denies: Hx Asthma, Hx COPD, Hx Pneumonia Neurological Medical History: Denies: Hx Cerebrovascular Accident, Hx Seizures Endocrine Medical History: Reports: Hx Diabetes Mellitus Type 1, Hx Diabetes Mellitus Type 2, Hx Hypothyroidism Renal/ Medical History: Reports: Hx Kidney Stones - 2010. Denies: Hx Peritoneal Dialysis GI Medical History: Denies: Hx Hepatitis, Hx Hiatal Hernia, Hx Ulcer Musculoskeltal Medical History: Reports Hx Arthritis Infectious Medical History: Denies: Hx Hepatitis Past Surgical History: Reports: Hx Orthopedic Surgery, Other - eye. Denies: Hx Hysterectomy, Hx Mastectomy, Hx Open Heart Surgery, Hx Pacemaker - Immunizations Hx Diphtheria, Pertussis, Tetanus Vaccination: Yes Physical Exam - Vital signs Vitals: Temp Pulse Resp BP Pulse Ox 97.7 F 53 L 18 121/56 L 95 06/20/19 09:09 06/20/19 09:09 06/20/19 09:09 06/20/19 09:09 06/20/19 09:09 - Back Back: CVA tenderness - Left Course - Vital Signs Vital signs: Temp Pulse Resp BP Pulse Ox 97.7 F 53 L 18 121/56 L 95 06/20/19 09:09 06/20/19 09:09 06/20/19 09:09 06/20/19 09:09 06/20/19 09:09 Doctor's Discharge - Discharge Referrals: [facility] [Primary Care Provider] - Follow up as needed
--- NOTE | 2019-06-20 10:00 | RADIOLOGY REPORT (SQ) ---
EXAM DESCRIPTION: CHEST 2 VIEWS COMPLETED DATE/TIME: 06/20/2019 9:53 am REASON FOR STUDY: sob COMPARISON: 11/17/2018 EXAM PARAMETERS: NUMBER OF VIEWS: two views TECHNIQUE: Digital Frontal and Lateral radiographic views of the chest acquired. RADIATION DOSE: NA LIMITATIONS: none FINDINGS: LUNGS AND PLEURA: No opacities, masses or pneumothorax. No pleural effusion. MEDIASTINUM AND HILAR STRUCTURES: No masses or contour abnormalities. HEART AND VASCULAR STRUCTURES: Heart normal size. No evidence for failure. BONES: No acute findings. HARDWARE: None in the chest. OTHER: No other significant finding. IMPRESSION: NO ACUTE RADIOGRAPHIC FINDING IN THE CHEST. TECHNICAL DOCUMENTATION: JOB ID: [id number] [employer]- All Rights Reserved Reading location - IP/workstation name: [email or web address]
[2019-06-20 10:32] LABS: ABSOLUTE LYMPHOCYTES (AUTO) 0.8 10^3/uL (0.5-4.7); ABSOLUTE MONOCYTES (AUTO) 0.3 10^3/uL (0.1-1.4); ABSOLUTE NEUT (AUTO) 2.6 10^3/uL (1.7-8.2); BASOPHILS % (AUTO) 0.3 % (0-2); EOSINOPHILS % (AUTO) 0.4 % (0-6); HEMOGLOBIN 13.1 g/dL (12.0-15.5); LYMPHOCYTES % (AUTO) 21.4 % (13-45); MEAN CORPUSCULAR HEMOGLOBIN 32.1 pg (27.0-33.4); MEAN CORPUSCULAR HGB CONC 33.6 g/dL (32.0-36.0); MEAN CORPUSCULAR VOLUME 96 fl (80-97); MONOCYTES % (AUTO) 7.4 % (3-13); PLATELET COUNT 194 10^3/uL (150-450); RED BLOOD COUNT 4.08 10^6/uL (3.72-5.28); RED CELL DISTRIBUTION WIDTH 13.3 % (11.5-14.0); SEGMENTED NEUTROPHILS % (AUTO) 70.5 % (42-78); TOTAL CELLS COUNTED % (AUTO) 100 %; WHITE BLOOD COUNT 3.7 10^3/uL (4.0-10.5)
--- NOTE | 2019-06-20 10:40 | ER Document Report ---
ED GI/ - General Chief Complaint: Flank Pain Stated Complaint: FLANK PAIN Time Seen by Provider: 06/20/19 09:18 Primary Care Provider: [facility] JOSE MARTIN,CHRISTIANO [NO LOCAL MD] - Follow up as needed Notes: Patient is a 58-year-old female with a history of type 1 diabetes who presents to the emergency department with a chief complaint of left lower back pain. Patient reports the pain started at 7 PM yesterday. She reports last time she had similar pain with a kidney stone. Patient reports that the left lower back pain does radiate up into her shoulders. Patient denies pain. Patient does report shortness of breath when the pain is intense. Patient denies urinary symptoms. Patient denies recent injury or fall. Patient states the pain does not radiate into her buttocks or legs. Patient denies numbness or tingling to the lower extremities. Patient denies saddle anesthesia. Patient reports that the left lower back pain is better when she lies down and is worse when she sits or stands. Patient reports she was just seen here in the emergency department within the past 12 hours in which she did receive a CAT scan with IV contrast. She reports she was told that there was no abnormalities but the patient is concerned she may have a stone. Patient denies abdominal pain. Patient denies nausea, vomiting or diarrhea. TRAVEL OUTSIDE OF THE [place] IN LAST 30 DAYS: No - Related Data Allergies/Adverse Reactions: loratadine [From Claritin] Allergy (Verified 05/05/19 16:12) povidone-iodine [From Betadine] Allergy (Verified 05/05/19 16:12) Soap [From Betadine] Allergy (Verified 05/05/19 16:12) triamcinolone [From Nasacort] Allergy (Verified 05/05/19 16:12) Past Medical History - General Information source: Patient - Social History Smoking Status: Current Some Day Smoker Frequency of alcohol use: Occasional Drug Abuse: None Lives with: Family Family History: Reviewed & Not Pertinent Patient has suicidal ideation: No Patient has homicidal ideation: No - Past Medical History Cardiac Medical History: Reports: Hx Hypercholesterolemia Denies: Hx Coronary Artery Disease, Hx Heart Attack, Hx Hypertension Pulmonary Medical History: Reports: Hx Bronchitis Denies: Hx Asthma, Hx COPD, Hx Pneumonia EENT Medical History: Reports: None Neurological Medical History: Denies: Hx Cerebrovascular Accident, Hx Seizures Endocrine Medical History: Reports: Hx Diabetes Mellitus Type 1, Hx Diabetes Mellitus Type 2, Hx Hypothyroidism Renal/ Medical History: Reports: Hx Kidney Stones - 2011. Denies: Hx Perito pao Dialysis Malignancy Medical History: Reports: None GI Medical History: Reports: None. Denies: Hx Hepatitis, Hx Hiatal Hernia, Hx Ulcer Musculoskeletal Medical History: Reports Hx Arthritis Skin Medical History: Reports None Psychiatric Medical History: Reports: None Traumatic Medical History: Reports: None Infectious Medical History: Reports: None. Denies: Hx Hepatitis Past Surgical History: Reports: Hx Orthopedic Surgery, Other - eye. Denies: Hx Hysterectomy, Hx Mastectomy, Hx Open Heart Surgery, Hx Pacemaker - Immunizations Hx Diphtheria, Pertussis, Tetanus Vaccination: Yes Review of Systems - Review of Systems Constitutional: No symptoms reported EENT: No symptoms reported Cardiovascular: No symptoms reported Respiratory: See HPI Gastrointestinal: No symptoms reported Genitourinary: No symptoms reported Female Genitourinary: No symptoms reported Musculoskeletal: See HPI Skin: No symptoms reported Hematologic/Lymphatic: No symptoms reported Neurological/Psychological: No symptoms reported Physical Exam - Vital signs Vitals: Temp Pulse Resp BP Pulse Ox 97.7 F 53 L 18 121/56 L 95 06/20/19 09:09 06/20/19 09:09 06/20/19 09:09 06/20/19 09:09 06/20/19 09:09 Interpretation: Bradycardic - Notes Notes: GENERAL: Well-appearing, well-nourished and in no acute distress. HEAD: Atraumatic, normocephalic. EYES: Pupils equal round and reactive to light, extraocular movements intact, sclera anicteric, conjunctiva are normal. ENT: Dried white crust noted to bilateral ear canals and external ears. Right RM normal, Left TM landmarks somewhat obscured - yellow exudate noted behind TM - no erythema or bulging. There is no mastoid tenderness, tragus tenderness or external pinna tenderness. Nares patent, oropharynx clear without exudates. Moist mucous membranes. NECK: Normal range of motion, supple without lymphadenopathy or JVD. LUNGS: Breath sounds clear to auscultation bilaterally and equal. No wheezes rales or rhonchi. HEART: Regular rate and rhythm without murmurs, rubs or gallops. ABDOMEN: Soft, nontender, normoactive bowel sounds. No guarding, no rebound. No masses appreciated. BACK: No cervical, thoracic, lumbar midline tenderness. No saddle anesthesia, normal distal neurovascular exam. Left lower discomfort with palpation to the latissimus dorsi. There is no erythema, ecchymosis, edema noted to the back. There is no CVA tenderness. GENITOURINARY: Deferred. EXTREMITIES: Normal range of motion, no pitting or edema. No clubbing or cyanosis. NEUROLOGICAL: Cranial nerves II through XII grossly intact. Normal speech, normal gait. PSYCH: Normal mood, normal affect. SKIN: Warm, Dry, normal turgor, no rashes or lesions noted. Course - Re-evaluation Re-evalutation: 06/20/19 10:39 Patient was seen by the triage provider and orders were placed in the computer. Patient was medicated for pain. Patient does have a lidocaine patch over the area where the patient reports having left lower back pain. Patient currently in no acute distress as she has been medicated with morphine. We will continue to monitor. Patient did have a full work-up within the past 12 hours to include a CTA of the chest and abdomen. There is no obvious abnormalities to include a stone or hydronephrosis. 06/20/19 11:07 Patient is requesting additional pain medication. I will give the patient 15 mg of IV Toradol. Patient did receive this about 12 hours ago. Patient specific gravity was elevated but she also did receive IV contrast earlier with her CAT scan. I will give some IV fluids to hydrate the patient. Patient does not have any blood in her urine or significant RBC's. 06/20/19 12:03 Upon reevaluation patient is resting comfortably on the stretcher on her back. Patient was sleeping but easy to arouse. Patient reports the Toradol has not helped much with her pain nor did the morphine. Patient's lab work was unremarkable. Patient is currently in no acute distress. At this time I do not feel like the patient requires additional testing. I did inform the patient that her symptoms could be musculoskeletal in nature as she did have pain over the muscle in her lower back with palpation, and the pain is worse with movement. Patient also reports having bilateral ear drainage for the past few months. Patient reports is normally clear in color. Patient reports she has seen the [facility] for [facility]. Patient denies ear pain. Patient reports over the past few days she has noticed more of a yellow discharge from her left ear. I will place the patient on antibiotics due to my physical examination as documented. Patient verbalized understanding. - Vital Signs Vital signs: Temp Pulse Resp BP Pulse Ox 97.7 F 53 L 18 121/56 L 95 06/20/19 09:09 06/20/19 09:09 06/20/19 09:09 06/20/19 09:09 06/20/19 09:09 - Laboratory Result Diagrams: 06/20/19 10:05 06/20/19 10:05 Laboratory results interpreted by me: 06/20/19 06/20/19 06/20/19 10:05 10:05 10:40 WBC 3.7 L Sodium 134.8 L Glucose 198 H Total Protein 5.7 L Albumin 3.4 L Urine Protein 30 H Urine Glucose (UA) 50 H Urine Ketones TRACE H Laboratory 06/20/19 06/20/19 06/20/19 10:05 10:05 10:40 WBC 3.7 L RBC 4.08 Hgb 13.1 Hct 39.0 MCV 96 MCH 32.1 MCHC 33.6 RDW 13.3 Plt Count 194 Lymph % (Auto) 21.4 [place] % (Auto) 7.4 Eos % (Auto) 0.4 Baso % (Auto) 0.3 Absolute Neuts (auto) 2.6 Absolute Lymphs (auto) 0.8 Absolute Monos (auto) 0.3 Absolute Eos (auto) 0.0 Absolute Basos (auto) 0.0 Seg Neutrophils % 70.5 Sodium 134.8 L Potassium 4.1 Chloride 101 Carbon Dioxide 29 Anion Gap 5 BUN 14 Creatinine 0.71 Est GFR ( Amer) > 60 Est GFR (MDRD) Non-Af > 60 Glucose 198 H Calcium 8.5 Total Bilirubin 0.3 Direct Bilirubin 0.1 Neonat Total Bilirubin Not Reportable Neonat Direct Bilirubin Not Reportable Neonat Indirect Bili Not Reportable AST 29 ALT 20 Alkaline Phosphatase 79 Total Protein 5.7 L Albumin 3.4 L Urine Color YELLOW Urine Appearance SLIGHTLY-CLOUDY Urine pH 5.0 Ur Specific [place] > 1.060 Urine Protein 30 H Urine Glucose (UA) 50 H Urine Ketones TRACE H Urine Blood NEGATIVE Urine Nitrite NEGATIVE Urine Bilirubin NEGATIVE Urine Urobilinogen NEGATIVE Ur Leukocyte Esterase NEGATIVE Urine WBC (Auto) 5 Urine RBC (Auto) 3 Urine Bacteria (Auto) TRACE Squamous Epi Cells Auto 3 Urine Mucus (Auto) RARE Urine Ascorbic Acid NEGATIVE Patient does not have a urinary tract infection, blood or significant amount of RBCs in the urine. Patient does have an elevated specific gravity which is consistent with the patient's recent CT scan with IV contrast. Patient does not have a leukocytosis, anemia, alteration in her lecture lites or kidney function. Patient's liver function is also normal. - EKG Interpretation by Me Additional EKG results interpreted by me: 06/20/19 12:17 Patient's EKG shows a sinus rhythm with a heart rate of 56. Patient's WI interval 168, QT is 408 and QTc is 394. Patient has a normal axis deviation without any specific ST segment changes in consecutive leads. Discharge - Discharge Clinical Impression: Otitis media of left ear Qualifiers: Otitis media type: suppurative Chronicity: acute Recurrence: recurrent Spontaneous tympanic membrane rupture: without spontaneous rupture Qualified Code(s): H66.005 - Acute suppurative otitis media without spontaneous rupture of ear drum, recurrent, left ear Low back pain Qualifiers: Chronicity: acute Back pain laterality: left Sciatica presence: without sciatica Qualified Code(s): M54.5 - Low back pain Condition: Stable Disposition: HOME, SELF-CARE Additional Instructions: Today he was seen in the emergency department for left lower back pain. We did perform a cardiac work-up, obtain basic labs and urinalysis which were unremarkable. At this time do not believe you require additional CAT scan imaging as this was performed within the past 12 hours and did not show any acute abnormality including a kidney or ureteral stone. I am unsure what is causing her pain. Due to the fact that the pain in your left lower back gets worse with certain movements that this could be musculoskeletal in nature. Over the next few days you may use ice to the area. Please use anti-inflammatories such as ibuprofen, Aleve, etc. may also use a muscle relaxers. Please return the emergency department if you develop any new or worsening symptoms such as radiation of pain, numbness, tingling down the back of your leg or weakness in your leg, numbness or tingling around the genital area, fever or any other concerning signs or symptoms. We will also prescribe you an oral antibiotic for the left ear infection. It does appear that you have a yellow pus behind the left eardrum. Please follow- up with the [facility] for a recheck. Low Back Pain Three out of every four people will have an episode of disabling back pain during their lifetime. Most commonly the pain is due to straining of the muscles and ligaments in the low back. Usual treatment includes: (1) Rest on a firm surface. Avoid lying on your stomach. (2) Ice pack the painful area. After a few days, gentle heat may be used intermittently to relax the area, or ice packs can be continued. (3) Medication may be needed -- muscle relaxers and antiinflammatory medicines are commonly used. (4) As the back improves, exercises are prescribed to strengthen the back and abdominal muscles. Your doctor will advise you on the proper care for your back at each stage in your recovery. You may be better in a few days -- or healing may take several weeks. If new symptoms of a "herniated disc" (radiation of pain, numbness, or tingling down the back of the leg or weakness in the leg) occur, you should be re-examined. Further testing may be necessary. FOLLOW-UP CARE: If you have been referred to a physician for follow-up care, call the physicians office for an appointment as you were instructed or within the next two days. If you experience worsening or a significant change in your symptoms, notify the physician immediately or return to the Emergency Department at any time for re-evaluation. Prescriptions: Amoxicillin 2 tab PO TID 7 Days tab Methocarbamol [Robaxin 500 mg Tablet] 1,000 mg PO TID #21 tablet [facility]NO LOCAL MD[facility] - Follow up as needed
[2019-06-20 10:54] LABS: ALBUMIN 3.4 g/dL (3.5-5.0); ALKALINE PHOSPHATASE 79 U/L (38-126); ANION GAP 5 (5-19); ASPARTATE AMINO TRANSFERASE 29 U/L (14-36); BILIRUBIN,DIRECT 0.1 mg/dL (0.0-0.4); BILIRUBIN,TOTAL 0.3 mg/dL (0.2-1.3); BLOOD UREA NITROGEN 14 mg/dL (7-20); CALCIUM 8.5 mg/dL (8.4-10.2); CARBON DIOXIDE 29 mmol/L (22-30); CHLORIDE 101 mmol/L (98-107); GLUCOSE 198 mg/dL (75-110); POTASSIUM 4.1 mmol/L (3.6-5.0); TOTAL PROTEIN 5.7 g/dL (6.3-8.2)
[2019-06-20 10:57] LABS: APPEARANCE,URINE SLIGHTLY-CLOUDY; BILIRUBIN,URINE NEGATIVE (NEGATIVE); COLOR,URINE YELLOW; GLUCOSE, URINE 50 mg/dL (NEGATIVE); KETONES,URINE TRACE mg/dL (NEGATIVE); LEUKOCYTE ESTERASE,URINE NEGATIVE (NEGATIVE); NITRITE,URINE NEGATIVE (NEGATIVE); PROTEIN,URINE 30 mg/dL (NEGATIVE); UROBILINOGEN,URINE NEGATIVE mg/dL (<2.0)
[2019-06-20 10:58] LABS: URINE SPECIFIC GRAVITY > 1.060
[2019-06-20] MEDS ORDERED: KETOROLAC TROMETHAMINE INJ/PF 30 MG/1 ML SDV IV ONE (11:06)
[2019-06-20] MEDS ORDERED: NORMAL SALINE 1000 ML 1,000 ML IV ONE (11:06)
[2019-06-20 12:41] VITALS: BP 136/65
--- NOTE | 2019-06-22 00:48 | EKG REPORT ---
SEVERITY:- OTHERWISE NORMAL ECG - SINUS RHYTHM LOW VOLTAGE IN FRONTAL LEADS : Confirmed by: Eliana Rocha 22-Jun-2019 00:47:32
== END 2019-06-20 12:41 | disposition home or self-care (01) ==
LOC: ER 08:56
DX: M79.18 Myalgia, other site (principal); H66.005 Acute suppurative otitis media without spontaneous rupture of ear drum, recurrent, left ear; R06.02 Shortness of breath; E10.9 Type 1 diabetes mellitus without complications; F17.200 Nicotine dependence, unspecified, uncomplicated; Z87.442 Personal history of urinary calculi; Z88.8 Allergy status to other drugs, medicaments and biological substances; Z88.3 Allergy status to other anti-infective agents
CPT/HCPCS: 93005; 99284; 96361; 96374; 96375; 36415; 87070; 81001; 84484; 71046; 93010; J1885; J2270; J7030

== ENCOUNTER 2019-06-21 00:03 | Emergency (ER) | payer OTHER ==
[2019-06-21] MEDS ORDERED: KETOROLAC TROMETHAMINE INJ/PF 30 MG/1 ML SDV IV ONE (03:39)
[2019-06-21] MEDS ORDERED: MORPHINE SULFATE 10 MG/ML INJ IV ONE (03:39)
--- NOTE | 2019-06-21 04:32 | ER Document Report ---
ED General - General Chief Complaint: Back Pain Stated Complaint: BACK PAIN Time Seen by Provider: 06/21/19 03:31 Primary Care Provider: TISHA GONZALEZ MD [HONORARY] - Follow up as needed TRAVEL OUTSIDE OF THE [place] IN LAST 30 DAYS: No - HPI Notes: This is a 58-year-old female who presents today with a complaint of left flank and left back pain for the past 2 days. Patient describes intermittent pain and sometimes feels like spasms. Pain sometimes radiates to her upper back. Patient denies any bowel or bladder incontinence. She denies any paresthesias. She denies any trauma. She was seen yesterday with same complaint. Patient had an extensive work-up which included a CT angiogram for chest abdomen pelvis to look for dissection her work-up was negative. Patient states she continues to have intermittent episodes of pain. She says she wants something stronger to take her pain away. She describes the pain as severe. - Related Data Allergies/Adverse Reactions: loratadine [From Claritin] Allergy (Verified 05/05/19 16:12) povidone-iodine [From Betadine] Allergy (Verified 05/05/19 16:12) Soap [From Betadine] Allergy (Verified 05/05/19 16:12) triamcinolone [From Nasacort] Allergy (Verified 05/05/19 16:12) Past Medical History - Social History Smoking Status: Never Smoker Chew tobacco use (# tins/day): No Frequency of alcohol use: None Family History: Reviewed & Not Pertinent Patient has suicidal ideation: No Patient has homicidal ideation: No - Past Medical History Cardiac Medical History: Reports: Hx Hypercholesterolemia Denies: Hx Coronary Artery Disease, Hx Heart Attack, Hx Hypertension Pulmonary Medical History: Reports: Hx Bronchitis Denies: Hx Asthma, Hx COPD, Hx Pneumonia Neurological Medical History: Denies: Hx Cerebrovascular Accident, Hx Seizures Endocrine Medical History: Reports: Hx Diabetes Mellitus Type 1, Hx Diabetes Mellitus Type 2, Hx Hypothyroidism Renal/ Medical History: Reports: Hx Kidney Stones - 2010. Denies: Hx Peritoneal Dialysis GI Medical History: Denies: Hx Hepatitis, Hx Hiatal Hernia, Hx Ulcer Musculoskeletal Medical History: Reports Hx Arthritis Infectious Medical History: Denies: Hx Hepatitis Past Surgical History: Reports: Hx Orthopedic Surgery, Other - eye. Denies: Hx Hysterectomy, Hx Mastectomy, Hx Open Heart Surgery, Hx Pacemaker - Immunizations Hx Diphtheria, Pertussis, Tetanus Vaccination: Yes Review of Systems - Review of Systems Gastrointestinal: denies: Abdominal pain, Diarrhea Genitourinary: Flank pain. denies: Frequency, Hematuria, Incontinence Musculoskeletal: Back pain -: Yes All other systems reviewed and negative Physical Exam - Vital signs Vitals: Temp Pulse Resp BP Pulse Ox 98.1 F 52 L 18 133/58 H 99 06/21/19 00:33 06/21/19 00:33 06/21/19 00:33 06/21/19 00:33 06/21/19 00:33 - General General appearance: Alert Notes: Patient appears uncomfortable, in pain. - Respiratory Respiratory status: No respiratory distress Chest status: Nontender Breath sounds: Normal Chest palpation: Normal - Cardiovascular Rhythm: Regular Heart sounds: Normal auscultation Murmur: No - Abdominal Inspection: Normal Distension: No distension Bowel sounds: Normal Tenderness: Nontender Organomegaly: No organomegaly - Back Back: Normal, Tender - There is tenderness in the left lower mid lateral back. There is tenderness over the CVA but it looks more like musculoskeletal tenderness and not gómez CVA tenderness because she complains of pain to my slightest touch. No midline tenderness or step-offs. No saddle anesthesia. - Neurological Neuro grossly intact: Yes Cognition: Normal Orientation: AAOx4 Roly Coma Scale Eye Opening: Spontaneous [place] Coma Scale Verbal: Oriented Roly Coma Scale Motor: Obeys Commands Roly Coma Scale Total: 15 Speech: Normal Motor strength normal: LUE, RUE, LLE, RLE Sensory: Normal - Psychological Associated symptoms: Anxious - Skin Skin Temperature: Warm Skin Moisture: Dry Skin Color: Normal Course - Re-evaluation Re-evalutation: 06/21/19 04:31 Clinical picture suggest muscle skeletal back pain. Patient recently had a an extensive work-up just yesterday with CT Gabrielle of the chest abdomen pelvis which did not show any acute abnormality. There is no indication to repeat CT at this time. Will manage symptomatically. PT stats that Morphine usually helps 06/21/19 04:55 Patient reevaluated. Patient feels much better. She is somnolent with them often. She does have some bradycardia. I think it is likely secondary to morphine. She has no cardiopulmonary symptoms. We will get a twelve-lead EKG. We will monitor her. 06/21/19 05:42 EKG shows sinus bradycardia 43 bpm. Normal axis. Normal intervals no acute injury pattern. 06/21/19 05:44 Patient reevaluated. She is doing better. Heart rate back in the 60s. She is awake and alert. She is asking for narcotic pain medication. I have explained to the patient that there is no indication for more narcotic pain medication and I am concerned about her respiratory status. I will put her on naproxen for pain and Robaxin as a muscle relaxant. Counseled her to follow-up with her primary care provider. She is stable for discharge. - Vital Signs Vital signs: Temp Pulse Resp BP Pulse Ox 98.1 F 52 L 18 151/66 H 100 06/21/19 00:33 06/21/19 00:33 06/21/19 05:31 06/21/19 05:31 06/21/19 05:31 Discharge - Discharge Clinical Impression: Back pain Qualifiers: Back pain location: low back pain Chronicity: acute Back pain laterality: left Sciatica presence: without sciatica Qualified Code(s): M54.5 - Low back pain Condition: Stable Disposition: HOME, SELF-CARE Instructions: Low Back Pain ([facility]) Additional Instructions: Follow-up with your doctor for further management as discussed. Prescriptions: Naproxen 500 mg PO BID PRN #14 tablet PRN Reason: Methocarbamol [Robaxin 500 mg Tablet] 500 mg PO BID PRN 10 Days #20 tablet PRN Reason: muscle spasm Referrals: TISHA GONZALEZ MD [HONORARY] - Follow up as needed
[2019-06-21 06:34] VITALS: BP 140/63
--- NOTE | 2019-06-22 00:48 | EKG REPORT ---
SEVERITY:- BORDERLINE ECG - SINUS BRADYCARDIA PROBABLE LEFT ATRIAL ABNORMALITY LOW VOLTAGE THROUGHOUT : Confirmed by: Eliana Rocha 22-Jun-2019 00:47:26
== END 2019-06-21 06:30 | disposition home or self-care (01) ==
LOC: ER 00:03
DX: M54.5 Low back pain (principal); M54.9 Dorsalgia, unspecified; M54.6 Pain in thoracic spine; M62.830 Muscle spasm of back; R10.9 Unspecified abdominal pain; E11.9 Type 2 diabetes mellitus without complications
CPT/HCPCS: 93005; 99283; 96374; 96375; 93010; J1885; J2270

== ENCOUNTER 2019-08-23 16:26 | Emergency (ER) | payer OTHER ==
[2019-08-23 16:35] VITALS: BP 143/60
[2019-08-23] MEDS ORDERED: IPRATROPIUM/ALBUTEROL 0.5-2.5 MG/3 ML AMPUL NEB ONE (16:45)
--- NOTE | 2019-08-23 16:50 | ER Document Report ---
HPI - HPI Patient complains to provider of: cough Time Seen by Provider: 08/23/19 16:36 Onset: Last week Onset/Duration: Persistent Quality of pain: Achy Pain Level: 2 Context: Patient presents complaining of cough sneezing and congestion for the past week. Patient states she has had productive cough. Patient states that she did get a nosebleed due to her congestion symptoms. Patient denies any fever chest pain nausea or vomiting. Patient states that her blood sugars have been in the 200s today. Patient has been compliant with taking her insulin as prescribed. Patient denies any history of any lung disorder such as asthma or COPD. Associated Symptoms: Productive cough, Rhinnorhea. denies: Chest pain, Earache, Fever, Nausea, Vomiting, Sore throat Exacerbated by: Denies Relieved by: Denies Similar symptoms previously: Yes Recently seen / treated by doctor: No - ROS ROS below otherwise negative: Yes Systems Reviewed and Negative: Yes All other systems reviewed and negative - CONSTITUTIONAL Constitutional: DENIES: Fever, Chills - EENT EENT: REPORTS: Nasal Drainage-Purulent, Congestion. DENIES: Sore Throat - NEURO Neurology: DENIES: Headache - CARDIOVASCULAR Cardiovascular: DENIES: Chest pain - RESPIRATORY Respiratory: REPORTS: Coughing. DENIES: Trouble Breathing - GASTROINTESTINAL Gastrointestinal: DENIES: Abdominal Pain, Nausea, Patient vomiting, Diarrhea - DERM Skin Color: Normal Skin Problems: None Past Medical History - General Information source: Patient - Social History Smoking Status: Never Smoker Chew tobacco use (# tins/day): No Frequency of alcohol use: None Drug Abuse: None Occupation: mobile service rv technician Family History: Reviewed & Not Pertinent Patient has suicidal ideation: No Patient has homicidal ideation: No - Past Medical History Cardiac Medical History: Reports: Hx Hypercholesterolemia Pulmonary Medical History: Reports: Hx Bronchitis Denies: Hx Asthma, Hx COPD Endocrine Medical History: Reports: Hx Diabetes Mellitus Type 1, Hx Hypothyroidism Renal/ Medical History: Reports: Hx Kidney Stones - 2010 Musculoskeletal Medical History: Reports Hx Arthritis Past Surgical History: Reports: Hx Orthopedic Surgery, Other - eye - Immunizations Hx Diphtheria, Pertussis, Tetanus Vaccination: Yes Vertical Provider Document - CONSTITUTIONAL Agree With Documented VS: Yes Exam Limitations: No Limitations General Appearance: WD/WN, No Apparent Distress - INFECTION CONTROL TRAVEL OUTSIDE OF THE [place] IN LAST 30 DAYS: No - HEENT HEENT: Atraumatic, Normocephalic. negative: Pharyngeal Exudate, Pharyngeal Tenderness, Pharyngeal Erythema, Tympanic Membrane Red, Tympanic Membrane Bulging Notes: clear rhinorrhea - NECK Neck: Normal Inspection, Supple. negative: Lymphadenopathy-Left, Lymphadenopathy-Right - RESPIRATORY Respiratory: No Respiratory Distress Notes: dry cough - CARDIOVASCULAR Cardiovascular: Regular Rate, Regular Rhythm, No Murmur. negative: Tachycardia - BACK Back: Normal Inspection - MUSCULOSKELETAL/EXTREMETIES Musculoskeletal/Extremeties: MAEW - NEURO Level of Consciousness: Awake, Alert, Appropriate Motor/Sensory: No Motor Deficit - DERM Integumentary: Warm, Dry, No Rash Course - Re-evaluation Re-evalutation: 08/23/19 17:48 Respirations even unlabored, patient nontoxic in appearance. No concern for pneumonia or pneumothorax. Discussed with patient management at this time. Discussed worsening signs or symptoms that she should return immediately for. - Vital Signs Vital signs: Temp Pulse Resp BP Pulse Ox 97.7 F 65 16 143/60 H 98 08/23/19 16:28 08/23/19 16:28 08/23/19 16:28 08/23/19 16:28 08/23/19 16:28 - Diagnostic Test Radiology reviewed: Image reviewed, Reports reviewed Discharge - Discharge Clinical Impression: Upper respiratory infection Qualifiers: URI type: unspecified URI Qualified Code(s): J06.9 - Acute upper respiratory infection, unspecified Condition: Stable Disposition: HOME, SELF-CARE Instructions: Upper Respiratory Illness ([facility]) Additional Instructions: Return immediately for any new or worsening symptoms Followup with your primary care provider, call tomorrow to make a followup appointment Prescriptions: Benzonatate [Tessalon Perle 100 mg Capsule] 100 mg PO Q8HP PRN #20 cap PRN Reason: Guaifenesin/Pseudoephedrne HCl [Mucinex D ER 1,200-120 mg Tab] 1 each PO BID PRN #12 tab.er.12h PRN Reason: Forms: Return to Work [facility] [Primary Care Provider] - Follow up as needed
--- NOTE | 2019-08-23 17:24 | RADIOLOGY REPORT (SQ) ---
EXAM DESCRIPTION: CHEST 2 VIEWS COMPLETED DATE/TIME: 08/23/2019 5:14 pm REASON FOR STUDY: cough COMPARISON: Chest radiographs 06/20/2019 EXAM PARAMETERS: NUMBER OF VIEWS: two views TECHNIQUE: Digital Frontal and Lateral radiographic views of the chest acquired. RADIATION DOSE: NA LIMITATIONS: none FINDINGS: LUNGS AND PLEURA: No opacities, masses or pneumothorax. No pleural effusion. MEDIASTINUM AND HILAR STRUCTURES: No masses or contour abnormalities. HEART AND VASCULAR STRUCTURES: Heart normal size. No evidence for failure. BONES: No acute findings. HARDWARE: None in the chest. OTHER: No other significant finding. IMPRESSION: NO ACUTE RADIOGRAPHIC FINDING IN THE CHEST. TECHNICAL DOCUMENTATION: JOB ID: [id number] [employer]- All Rights Reserved Reading location - IP/workstation name: [email or web address]
== END 2019-08-23 18:08 | disposition home or self-care (01) ==
LOC: ER 16:26
DX: J06.9 Acute upper respiratory infection, unspecified (principal); R05 Cough; R06.7 Sneezing; J34.89 Other specified disorders of nose and nasal sinuses; E10.9 Type 1 diabetes mellitus without complications; Z79.4 Long term (current) use of insulin
CPT/HCPCS: 94640; 99283; 71046; J7620

== ENCOUNTER 2019-08-28 20:45 | Emergency (ER) | payer OTHER ==
--- NOTE | 2019-08-28 21:11 | ER Document Report ---
ED Medical Screen (RME) - General Chief Complaint: Cough Stated Complaint: COUGH Time Seen by Provider: 08/28/19 21:08 [facility]: [facility] [Primary [facility] Provider] - Follow up as needed Mode of Arrival: Ambulatory Information source: Patient Notes: 59-year-old female presented to ED for complaint of cough congestion congestion in both her head and her chest. She states she coughs up thick white phlegm and when she blows her nose it is yellow. She states she has not had a fever. Patient is alert oriented respirations regular nonlabored speaking in full sentences. Lungs are clear to auscultation. 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 I have greeted and performed a rapid initial assessment of this patient. A comprehensive ED assessment and evaluation of the patient, analysis of test results and completion of medical decision making process will be conducted by an additional ED providers. TRAVEL OUTSIDE OF THE [place] IN LAST 30 DAYS: No - Related Data Allergies/Adverse Reactions: loratadine [From Claritin] Allergy (Verified 08/28/19 21:07) povidone-iodine [From Betadine] Allergy (Verified 08/28/19 21:07) Soap [From Betadine] Allergy (Verified 08/28/19 21:07) triamcinolone [From Nasacort] Allergy (Verified 08/28/19 21:07) Past Medical History - General Information source: Patient - Social History Cigarette use (# per day): No Chew tobacco use (# tins/day): No Frequency of alcohol use: Rare Drug Abuse: None - Past Medical History Cardiac Medical History: Reports: Hx Hypercholesterolemia Pulmonary Medical History: Reports: Hx Bronchitis, Hx Pneumonia Endocrine Medical History: Reports: Hx Diabetes Mellitus Type 1, Hx Hypothyroidism Renal/ Medical History: Reports: Hx Kidney Stones - 2010 Musculoskeltal Medical History: Reports Hx Arthritis Past Surgical History: Reports: Hx Orthopedic Surgery, Other - eye - Immunizations Hx Diphtheria, Pertussis, Tetanus Vaccination: Yes Physical Exam - Vital signs Vitals: Temp Pulse Resp BP Pulse Ox 98.1 F 70 18 154/69 H 97 08/28/19 20:52 08/28/19 20:52 08/28/19 20:52 08/28/19 20:52 08/28/19 20:52 Course - Vital Signs Vital signs: Temp Pulse Resp BP Pulse Ox 98.1 F 70 18 154/69 H 97 08/28/19 20:52 08/28/19 20:52 08/28/19 20:52 08/28/19 20:52 08/28/19 20:52 Doctor's Discharge - Discharge Referrals: [facility] [Primary Care Provider] - Follow up as needed
--- NOTE | 2019-08-28 21:56 | RADIOLOGY REPORT (SQ) ---
EXAM: No free air is clearly identified, however atypical lucency present overlying the projection of the LEFT and RIGHT hemiabdomen fourth free intra-abdominal air cannot be excluded. Lateral decubitus imaging or CT if the abdomen and pelvis may be considered to exclude the possibility of free air. CLINICAL INDICATION: 59-year-old female with cough and congestion. TECHNIQUE: Two-view, PA and lateral projections of the chest were obtained. COMPARISON: 08/23/2019. FINDINGS: Unremarkable cardiac and mediastinal silhouette. Heart size is normal. Lungs are clear without focal opacity, pneumothorax or pleural effusions. The visualized bones are within normal limits. IMPRESSION: No acute cardiopulmonary abnormalities.
--- NOTE | 2019-08-28 22:54 | ER Document Report ---
HPI - HPI Time Seen by Provider: 08/28/19 21:08 Pain Level: 4 Notes: Patient is a 59-year-old female with a history of insulin dependent diabetes who presents complaining of a dry cough for the past 2 weeks. Patient states that she is starting to feel fatigued because of the cough. She is otherwise able to eat and drink without difficulty. She is urinating normally and having normal bowel movements. She has had occasional nasal congestion and discharge associat ed as well. No other concerns or complaints. Denies any headache, fever, neck pain, sore throat, chest pain, palpitations, syncope, shortness of breath, wheeze, dyspnea, abdominal pain, nausea/vomiting/diarrhea, urinary retention, dysuria, hematuria, or rash. - ROS Systems Reviewed and Negative: Yes All other systems reviewed and negative - REPRODUCTIVE Reproductive: DENIES: : Past Medical History - General Information source: Patient - Social History Smoking Status: Never Smoker Cigarette use (# per day): No Chew tobacco use (# tins/day): No Frequency of alcohol use: Rare Drug Abuse: None Family History: Reviewed & Not Pertinent Patient has suicidal ideation: No Patient has homicidal ideation: No - Past Medical History Cardiac Medical History: Reports: Hx Hypercholesterolemia Pulmonary Medical History: Reports: Hx Bronchitis, Hx Pneumonia Endocrine Medical History: Reports: Hx Diabetes Mellitus Type 1, Hx Hypothyroidism Renal/ Medical History: Reports: Hx Kidney Stones - 2010 Musculoskeletal Medical History: Reports Hx Arthritis Past Surgical History: Reports: Hx Orthopedic Surgery, Other - eye - Immunizations Hx Diphtheria, Pertussis, Tetanus Vaccination: Yes Vertical Provider Document - CONSTITUTIONAL Agree With Documented VS: Yes Notes: PHYSICAL EXAMINATION: GENERAL: Well-appearing, well-nourished and in no acute distress. A&Ox4. Answers questions appropriately. Moves comfortably w/o notable distress HEAD: Atraumatic, normocephalic. EYES: Pupils equal round and reactive to light, extraocular movements intact, sclera anicteric, conjunctiva are normal. ENT: Nares patent and with clear discharge. oropharynx no erythema without exudates. No tonsilar hypertrophy without erythema or exudate. No palatine shift. Uvula midline. No tongue protrusion. No drooling, hoarseness, or airway compromise. Moist mucous membranes. No sinus tenderness. NECK: Normal range of motion, supple without lymphadenopathy. No rigidity/meningismus. LUNGS: Breath sounds clear to auscultation bilaterally and equal. No wheezes rales or rhonchi. No retractions HEART: Regular rate and rhythm without murmurs, rubs, gallops. ABDOMEN: Soft, nontender, nondistended abdomen. No guarding, no rebound. Normal bowel sounds present. No CVA tenderness bilaterally. NEUROLOGICAL: Normal speech, normal gait. PSYCH: Normal mood, normal affect. SKIN: Warm, Dry, normal turgor, no rashes or lesions noted. - INFECTION CONTROL TRAVEL OUTSIDE OF THE [place] IN LAST 30 DAYS: No Course - Re-evaluation Re-evalutation: 08/28/19 22:53 Patient is an afebrile, well-hydrated, 59-year-old female who presents to the ED with a cough for 2 weeks. Vitals are acceptable. PE is otherwise unremarkable. CXR unremarkable. No other labs or imaging warranted at this time based on H&P. Patient has no significant cardiopulmonary or immunocompromised medical conditions. Patient's lungs are clear to auscultation bilaterally without tachycardia, hypoxia, or tachypnea. Patient is tolerating p.o. without any difficulties. Low suspicion for any meningitis, sepsis, peritonsillar/pharyngeal abscess, respiratory compromise, severe dehydration, pneumonia, or other emergent systemic condition at this time. Patient is aware this condition can change from initial presentation and she needs to monitor symptoms closely. I will send her home with an antibiotic as she is an insulin dependent diabetic that has had this illness for 2 weeks. Conservative measures otherwise for symptoms. Recheck with your PCM in 3-5 days. Return to the ED with any worsening/concerning symptoms otherwise as reviewed in discharge. Pat ient is in agreement. - Vital Signs Vital signs: Temp Pulse Resp BP Pulse Ox 98.1 F 70 18 154/69 H 97 08/28/19 21:09 08/28/19 21:09 08/28/19 21:09 08/28/19 21:09 08/28/19 21:09 Discharge - Discharge Clinical Impression: Cough Condition: Stable Disposition: HOME, SELF-CARE Additional Instructions: Maintain adequate fluid intake tylenol/ibuprofen as needed alternating every 3 hours for fever/body ache over the counter cold medication as needed for symptoms Humidified air may help Wash your hands regularly Wear a mask when coughing F/u: with your PCM in 2-3 days for a recheck Return to the ED with any fever, altered mental status/behavior, chest pain, palpitations, syncope, headache, neck pain/stiffness, shortness of breath, chest pains, wheezing, drooling, trouble swallowing/breathing, abdominal pain, n/v/d, rash, or worsening/concerning symptoms otherwise. Prescriptions: Azithromycin [Zithromax 250 mg Tablet] 250 mg PO ASDIR PRN #6 tablet PRN Reason: Forms: Elevated Blood Pressure Referrals: [facility] [Primary Care Provider] - Follow up in 3-5 days
[2019-08-28 23:13] VITALS: BP 133/76
== END 2019-08-28 23:13 | disposition home or self-care (01) ==
LOC: ER 20:45
DX: R05 Cough (principal); R53.83 Other fatigue; E78.00 Pure hypercholesterolemia, unspecified; E10.9 Type 1 diabetes mellitus without complications; Z79.4 Long term (current) use of insulin; Z87.442 Personal history of urinary calculi
CPT/HCPCS: 71046; 99283

== ENCOUNTER 2019-11-10 19:12 | Emergency (ER) | payer SELFPAY ==
--- NOTE | 2019-11-10 21:05 | ER Document Report ---
ED Medical Screen (RME) - General Chief Complaint: Urinary Incontinence Stated Complaint: URINARY ISSUES Time Seen by Provider: 11/10/19 20:54 Primary Care Provider: [facility] [Primary Care Provider] - Follow up as needed Notes: Patient is a 59-year-old female with a history of type 1 diabetes who presents emergency department with polyuria and urinary incontinence. Patient states that she has been drinking a lot of water for the past 5 to 6 days and since she started drinking more water, she has had multiple trips to the bathroom. She states that sometimes she is not able to make it to the bathroom on time. She denies any pain. Patient states that her blood sugars have been "high and all over the place." Exam: Soft, nontender abdomen. I have greeted and performed a rapid initial assessment of this patient. A comprehensive ED assessment and evaluation of the patient, analysis of test results and completion of medical decision making process will be conducted by an additional ED providers. TRAVEL OUTSIDE OF THE [place] IN LAST 30 DAYS: No - Related Data Allergies/Adverse Reactions: loratadine [From Claritin] Allergy (Verified 11/10/19 20:54) povidone-iodine [From Betadine] Allergy (Verified 11/10/19 20:54) Soap [From Betadine] Allergy (Verified 11/10/19 20:54) triamcinolone [From Nasacort] Allergy (Verified 11/10/19 20:54) Past Medical History - Past Medical History Cardiac Medical History: Reports: Hx Hypercholesterolemia Pulmonary Medical History: Reports: Hx Bronchitis, Hx Pneumonia Endocrine Medical History: Reports: Hx Diabetes Mellitus Type 1, Hx Hypothyroidism Renal/ Medical History: Reports: Hx Kidney Stones - 2011 Musculoskeltal Medical History: Reports Hx Arthritis Past Surgical History: Reports: Hx Orthopedic Surgery, Other - eye - Immunizations Hx Diphtheria, Pertussis, Tetanus Vaccination: Yes Physical Exam - Vital signs Vitals: Temp Pulse Resp BP Pulse Ox 97.9 F 69 20 168/54 H 98 11/10/19 19:31 11/10/19 19:31 11/10/19 19:31 11/10/19 19:31 11/10/19 19:31 Course - Vital Signs Vital signs: Temp Pulse Resp BP Pulse Ox 97.9 F 69 20 168/54 H 98 11/10/19 19:31 11/10/19 19:31 11/10/19 19:31 11/10/19 19:31 11/10/19 19:31 Doctor's Discharge - Discharge Referrals: [facility] [Primary Care Provider] - Follow up as needed
[2019-11-10 21:42] LABS: ABSOLUTE BASOPHILS # (AUTO) 0.1 10^3/uL (0.0-0.2); ABSOLUTE EOSINOPHILS # (AUTO) 0.1 10^3/uL (0.0-0.6); ABSOLUTE LYMPHOCYTES (AUTO) 2.1 10^3/uL (0.5-4.7); ABSOLUTE MONOCYTES (AUTO) 0.5 10^3/uL (0.1-1.4); ABSOLUTE NEUT (AUTO) 4.4 10^3/uL (1.7-8.2); BASOPHILS % (AUTO) 0.8 % (0-2); EOSINOPHILS % (AUTO) 1.2 % (0-6); HEMATOCRIT 43.5 % (36.0-47.0); HEMOGLOBIN 14.8 g/dL (12.0-15.5); LYMPHOCYTES % (AUTO) 29.3 % (13-45); MEAN CORPUSCULAR HEMOGLOBIN 32.5 pg (27.0-33.4); MEAN CORPUSCULAR HGB CONC 34.1 g/dL (32.0-36.0); MEAN CORPUSCULAR VOLUME 95 fl (80-97); MONOCYTES % (AUTO) 6.6 % (3-13); PLATELET COUNT 269 10^3/uL (150-450); RED BLOOD COUNT 4.57 10^6/uL (3.72-5.28); RED CELL DISTRIBUTION WIDTH 13.2 % (11.5-14.0); SEGMENTED NEUTROPHILS % (AUTO) 62.1 % (42-78); TOTAL CELLS COUNTED % (AUTO) 100 %; WHITE BLOOD COUNT 7.1 10^3/uL (4.0-10.5)
[2019-11-10 21:48] LABS: APPEARANCE,URINE CLEAR; BILIRUBIN,URINE NEGATIVE (NEGATIVE); COLOR,URINE YELLOW; GLUCOSE, URINE >=500 mg/dL (NEGATIVE); KETONES,URINE NEGATIVE (NEGATIVE); LEUKOCYTE ESTERASE,URINE NEGATIVE (NEGATIVE); NITRITE,URINE NEGATIVE (NEGATIVE); PROTEIN,URINE NEGATIVE (NEGATIVE); URINE SPECIFIC GRAVITY 1.031; UROBILINOGEN,URINE NEGATIVE mg/dL (<2.0)
[2019-11-10 21:56] LABS: ALKALINE PHOSPHATASE 78 U/L (38-126); ANION GAP 9 (5-19); ASPARTATE AMINO TRANSFERASE 24 U/L (14-36); BILIRUBIN,DIRECT 0.1 mg/dL (0.0-0.4); BILIRUBIN,TOTAL 0.6 mg/dL (0.2-1.3); BLOOD UREA NITROGEN 20 mg/dL (7-20); CALCIUM 9.8 mg/dL (8.4-10.2); CARBON DIOXIDE 31 mmol/L (22-30); CHLORIDE 99 mmol/L (98-107); GLUCOSE 286 mg/dL (75-110); POTASSIUM 4.1 mmol/L (3.6-5.0); TOTAL PROTEIN 6.8 g/dL (6.3-8.2)
[2019-11-11 01:17] VITALS: BP 152/71
--- NOTE | 2019-11-11 01:21 | ER Document Report ---
Entered by DIAZ ARNOLD SCRIBE 11/11/19 0046 Acting as scribe for:OTIS REYNOSO MD ED General - General Chief Complaint: Urinary Frequency Stated Complaint: URINARY ISSUES Time Seen by Provider: 11/10/19 20:54 Primary Care Provider: [facility] [Primary Care Provider] - Follow up as needed Information source: Patient Notes: 59-year-old female presents to the emergency department complaining of urinary frequency that began 5 day ago. Patient states that when she "feels the urge to go" she cannot hold her urine before making it to the bathroom. Patient states that she "can't make it to the bathroom quick enough" before having a "mishap an d has to change her clothes". Patient denies fevers, chills, dysuria, nausea and vomiting. TRAVEL OUTSIDE OF THE [place] IN LAST 30 DAYS: No - Related Data Allergies/Adverse Reactions: loratadine [From Claritin] Allergy (Verified 11/10/19 20:54) povidone-iodine [From Betadine] Allergy (Verified 11/10/19 20:54) Soap [From Betadine] Allergy (Verified 11/10/19 20:54) triamcinolone [From Nasacort] Allergy (Verified 11/10/19 20:54) Home Medications: lantus, humalog, synthroid, omega 3-6-9, baby asa Past Medical History - General Information source: Patient - Social History Smoking Status: Never Smoker Cigarette use (# per day): No Chew tobacco use (# tins/day): No Frequency of alcohol use: None Drug Abuse: None Occupation: [employer] employee Lives with: Alone Family History: Reviewed & Not Pertinent Patient has suicidal ideation: No Patient has homicidal ideation: No - Past Medical History Cardiac Medical History: Reports: Hx Hypercholesterolemia Pulmonary Medical History: Reports: Hx Bronchitis, Hx Pneumonia Endocrine Medical History: Reports: Hx Diabetes Mellitus Type 1, Hx Hypothyroidism Renal/ Medical History: Reports: Hx Kidney Stones - 2010 Musculoskeletal Medical History: Reports Hx Arthritis Past Surgical History: Reports: Hx Orthopedic Surgery, Other - eye - Immunizations Hx Diphtheria, Pertussis, Tetanus Vaccination: Yes Review of Systems - Review of Systems Constitutional: See HPI. denies: Chills, Fever EENT: No symptoms reported Cardiovascular: No symptoms reported Respiratory: No symptoms reported Gastrointestinal: See HPI. denies: Nausea, Vomiting Genitourinary: See HPI, Frequency. denies: Burning, Dysuria Female Genitourinary: No symptoms reported Musculoskeletal: No symptoms reported Skin: No symptoms reported Hematologic/Lymphatic: No symptoms reported Neurological/Psychological: No symptoms reported -: Yes All other systems reviewed and negative Physical Exam - Vital signs Vitals: Temp Pulse Resp BP Pulse Ox 97.9 F 69 20 168/54 H 98 11/10/19 19:31 11/10/19 19:31 11/10/19 19:31 11/10/19 19:31 11/10/19 19:31 - Notes Notes: Physical Exam: General: Alert, appears well. HEENT: Normocephalic. Atraumatic. PERRL. Extraocular movements intact. Oropharynx clear. Neck: Supple. Non-tender. Respiratory: No respiratory distress. Clear and equal breath sounds bilaterally. Cardiovascular: Regular rate and rhythm. Abdominal: Normal Inspection. Non-tender. No distension. Normal Bowel Sounds. Back: No gross abnormalities. Extremities: Moves all four extremities. Upper extremities: Normal inspection. Normal ROM. Lower extremities: Normal inspection. No edema. Normal ROM. Neurological: Normal cognition. AAOx4. Normal speech. Psychological: Normal affect. Normal Mood. Skin: Warm. Dry. Normal color. Course - Re-evaluation Re-evalutation: 11/11/19 01:19 Alert showing no signs of any acute distress. - Vital Signs Vital signs: Temp Pulse Resp BP Pulse Ox 97.6 F 64 20 152/71 H 98 11/11/19 01:14 11/11/19 01:14 11/11/19 01:14 11/11/19 01:14 11/11/19 01:14 - Laboratory Result Diagrams: 11/10/19 21:22 11/10/19 21:22 Laboratory results interpreted by me: 11/10/19 11/10/19 11/10/19 21:00 21:18 21:22 Carbon Dioxide 31 H Glucose 286 H POC Glucose 280 H Hemoglobin A1c % Urine Glucose (UA) >=500 H 11/10/19 21:22 Carbon Dioxide Glucose POC Glucose Hemoglobin A1c % 10.2 H Urine Glucose (UA) 11/11/19 01:18 Elevated hemoglobin A1c of 10.2 with glucose level of 286. Patient has hyperglycemia insulin-dependent diabetes mellitus in poor control. Advised patient that she needs to follow her dietary regimen and what her exercise program she wants to employ and adjust her insulin as required to get better control of her blood sugars. Discharge - Discharge Clinical Impression: Insulin dependent diabetes mellitus, Hyperglycemia due to type 1 diabetes mellitus Condition: Stable Disposition: HOME, SELF-CARE Additional Instructions: Diabetes You have an abnormally high blood sugar, suspicious for diabetes. Not all high blood sugar requires long-term treatment. High blood sugar can be due to medications, , or the stress of illness. (These cases are "borderline diabetes.") If the doctor feels your high blood sugar might get better with time, you may not require treatment now. You will be scheduled for further evaluation. It's very important that you follow through. Uncontrolled high blood sugar leads to early heart disease, strokes, nerve damage, eye damage, and kidney damage. All diabetics should follow a diet designed to control the blood sugar. Overweight diabetics should exercise regularly and lose weight. If this is not sufficient to control the blood sugar, pills or insulin shots are necessary. Younger people who develop diabetes almost always require insulin daily. Home testing of blood sugars or urine sugar is required. Diabetic teaching is available to help you figure insulin doses and monitor the blood sugar. Call the physician if there is faintness, excess sleepiness, or very rapid breathing. If hypoglycemia (LOW blood sugar) develops, symptoms are shakiness, weakness, sweating, and confusion. In this case, you should eat or drink something with sugar at once. Referrals: [facility] [Primary Care Provider] - Follow up as needed I personally performed the services described in the documentation, reviewed and edited the documentation which was dictated to the scribe in my presence, and it accurately records my words and actions.
== END 2019-11-11 01:50 | disposition home or self-care (01) ==
LOC: ER 19:12
DX: E10.65 Type 1 diabetes mellitus with hyperglycemia (principal); R35.0 Frequency of micturition; E78.00 Pure hypercholesterolemia, unspecified; E03.9 Hypothyroidism, unspecified; Z79.4 Long term (current) use of insulin; Z79.82 Long term (current) use of aspirin; Z87.442 Personal history of urinary calculi
CPT/HCPCS: 36415; 80053; 81001; 82962; 83036; 85025; 99283

== ENCOUNTER 2020-03-16 20:49 | Emergency (ER) | payer SELFPAY ==
[2020-03-16 21:38] LABS: ABSOLUTE BASOPHILS # (AUTO) 0.1 10^3/uL (0.0-0.2); ABSOLUTE LYMPHOCYTES (AUTO) 1.2 10^3/uL (0.5-4.7); ABSOLUTE MONOCYTES (AUTO) 0.5 10^3/uL (0.1-1.4); ABSOLUTE NEUT (AUTO) 8.7 10^3/uL (1.7-8.2); BASOPHILS % (AUTO) 1.2 % (0-2); EOSINOPHILS % (AUTO) 0.4 % (0-6); HEMATOCRIT 42.1 % (36.0-47.0); HEMOGLOBIN 14.5 g/dL (12.0-15.5); MEAN CORPUSCULAR HEMOGLOBIN 32.5 pg (27.0-33.4); MEAN CORPUSCULAR HGB CONC 34.4 g/dL (32.0-36.0); MEAN CORPUSCULAR VOLUME 94 fl (80-97); PLATELET COUNT 276 10^3/uL (150-450); RED BLOOD COUNT 4.46 10^6/uL (3.72-5.28); RED CELL DISTRIBUTION WIDTH 13.4 % (11.5-14.0); SEGMENTED NEUTROPHILS % (AUTO) 82.4 % (42-78); TOTAL CELLS COUNTED % (AUTO) 100 %; WHITE BLOOD COUNT 10.6 10^3/uL (4.0-10.5)
[2020-03-16 22:39] LABS: ALBUMIN 4.3 g/dL (3.5-5.0); ALKALINE PHOSPHATASE 98 U/L (38-126); ANION GAP 8 (5-19); ASPARTATE AMINO TRANSFERASE 40 U/L (14-36); BILIRUBIN,DIRECT 0.2 mg/dL (0.0-0.4); BILIRUBIN,TOTAL 0.8 mg/dL (0.2-1.3); BLOOD UREA NITROGEN 21 mg/dL (7-20); CALCIUM 9.7 mg/dL (8.4-10.2); CARBON DIOXIDE 25 mmol/L (22-30); CHLORIDE 106 mmol/L (98-107); GLUCOSE 118 mg/dL (75-110); POTASSIUM 4.7 mmol/L (3.6-5.0); TOTAL PROTEIN 7.5 g/dL (6.3-8.2)
[2020-03-16 22:45] LABS: APPEARANCE,URINE CLEAR; BILIRUBIN,URINE NEGATIVE (NEGATIVE); COLOR,URINE YELLOW; GLUCOSE, URINE NEGATIVE (NEGATIVE); KETONES,URINE NEGATIVE (NEGATIVE); LEUKOCYTE ESTERASE,URINE NEGATIVE (NEGATIVE); NITRITE,URINE NEGATIVE (NEGATIVE); PROTEIN,URINE NEGATIVE (NEGATIVE); URINE SPECIFIC GRAVITY 1.011; UROBILINOGEN,URINE NEGATIVE mg/dL (<2.0)
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
[2020-03-17 00:52] VITALS: BP 162/99
== END 2020-03-17 00:45 | disposition home or self-care (01) ==
LOC: ER 20:49
DX: E11.649 Type 2 diabetes mellitus with hypoglycemia without coma (principal); R55 Syncope and collapse; R53.1 Weakness; Z87.891 Personal history of nicotine dependence; Z88.3 Allergy status to other anti-infective agents; Z88.8 Allergy status to other drugs, medicaments and biological substances
CPT/HCPCS: 36415; 80053; 81001; 82962; 85025; 99285

== ENCOUNTER 2020-06-16 18:50 | Emergency (ER) | payer OTHER ==
--- NOTE | 2020-06-16 20:18 | RADIOLOGY REPORT (SQ) ---
EXAM DESCRIPTION: XR HIP 2 OR MORE VIEWS COMPLETED DATE/TME: 06/16/2020 19:41 CLINICAL HISTORY: 59 years, Female, fall; leg/hip pain COMPARISON: None. NUMBER OF VIEWS: 2 views TECHNIQUE: Frontal and lateral radiograph are obtained LIMITATIONS: None. FINDINGS: Mild right hip joint osteoarthrosis, designated by joint space narrowing. Remaining visualized osseous structures appear normal without acute fracture or dislocation. Phleboliths project over the pelvic inlet. IMPRESSION: No acute osseous anomaly. copyright 2010 [employer]- All Rights Reserved
--- NOTE | 2020-06-16 20:25 | RADIOLOGY REPORT (SQ) ---
Left tibia/fibular radiographs: 06/16/2020 7:41 PM CDT COMPARISON: None available TECHNIQUE: AP and lateral images of the left tibia and fibula were obtained. HISTORY: 59-year-old patient with left lower extremity pain . FINDINGS: There are no findings to suggest an acute fracture or subluxation within the left tibia or fibula. The visualized soft tissues appear grossly unremarkable. IMPRESSION: There are no findings to suggest an acute fracture or subluxation within the left tibia or fibula.
--- NOTE | 2020-06-16 20:39 | RADIOLOGY REPORT (SQ) ---
Left knee radiographs: 06/16/2020 7:37 PM CDT HISTORY: 59-year-old patient with left knee pain. TECHNIQUE: AP, oblique, and lateral images of the left knee were obtained. COMPARISON: None available FINDINGS: There are no findings to suggest an acute fracture or subluxation. No suprapatellar joint effusion is seen. The visualized soft tissues are grossly unremarkable. No gross erosions or abnormal soft tissue calcifications are seen. IMPRESSION: There are no findings to suggest an acute fracture or subluxation within the left knee.
--- NOTE | 2020-06-16 21:34 | ER Document Report ---
HPI - HPI Time Seen by Provider: 06/16/20 19:30 Pain Level: 4 Context: Patient is a 59-year-old female presents emergency department with left leg pain after a fall. Patient ended up falling down some stairs little over a week ago. Patient states that she has some bruising. Patient is able to walk. Patient has history of diabetes. Denies hitting her head. Denies any neck pain or back pain. - ROS Systems Reviewed and Negative: Yes All other systems reviewed and negative - CONSTITUTIONAL Constitutional: DENIES: Fever, Chills - REPRODUCTIVE Reproductive: DENIES: : - MUSCULOSKELETAL Musculoskeletal: REPORTS: Extremity pain - Left leg - DERM Skin Problems: Bruise - Left lower extremity Past Medical History - General Information source: Patient - Social History Smoking Status: Never Smoker Family History: Reviewed & Not Pertinent - Past Medical History Cardiac Medical History: Reports: Hx Hypercholesterolemia Pulmonary Medical History: Reports: Hx Bronchitis, Hx Pneumonia Endocrine Medical History: Reports: Hx Diabetes Mellitus Type 1, Hx Hypothyroidism Renal/ Medical History: Reports: Hx Kidney Stones - 2010 Musculoskeletal Medical History: Reports Hx Arthritis Past Surgical History: Reports: Hx Orthopedic Surgery, Other - eye - Immunizations Hx Diphtheria, Pertussis, Tetanus Vaccination: Yes Vertical Provider Document - CONSTITUTIONAL Agree With Documented VS: Yes Exam Limitations: No Limitations General Appearance: No Apparent Distress - INFECTION CONTROL TRAVEL OUTSIDE OF THE [place] IN LAST 30 DAYS: No - HEENT HEENT: Atraumatic, Normocephalic, PERRLA - RESPIRATORY Respiratory: No Respiratory Distress - CARDIOVASCULAR Cardiovascular: Regular Rate, Regular Rhythm Pulses: Normal: Posterior tibial, Dorsalis pedis - MUSCULOSKELETAL/EXTREMETIES Musculoskeletal/Extremeties: FROM, Tender - Left leg, Eccymosis - Left anterior thigh; multiple areas to left lower extremity due to varicose veins. - NEURO Level of Consciousness: Awake, Alert, Appropriate Motor/Sensory: No Motor Deficit, No Sensory Deficit - DERM Integumentary: Warm, Dry, No Rash Course - Re-evaluation Re-evalutation: 06/16/20 21:52 Patient's x-rays are unremarkable. Patient is able to walk. Capillary refill less than 3 seconds. Dorsalis pedis and posterior tibial pulses 2+. No vascular compromise noted. Patient was placed in an Tima wrap. Follow-up precautions were given. Follow-up precautions were given. Verbal discharge instructions were given to the patient. They verbalized understanding. They are stable for discharge. - Vital Signs Vital signs: Temp Pulse Resp BP Pulse Ox 98.8 F 70 16 140/56 H 97 06/16/20 19:31 06/16/20 19:31 06/16/20 19:31 06/16/20 19:31 06/16/20 19:31 Procedures - Immobilization Left Leg Pre-Proc Neuro Vasc Exam: Normal Immobilizer type: Tima wrap Performed by: Provider Post-Proc Neuro Vasc Exam: Normal, Unchanged from pre-exam Alignment checked and good: Yes Discharge - Discharge Clinical Impression: Left leg pain Condition: Stable Disposition: HOME, SELF-CARE Additional Instructions: You were seen today in the emergency department after a fall. Your x-rays are normal. Use Tima wraps to help with swelling. [facility]. Make sure you elevate your legs. Take Tylenol 1000 mg every 6 hours as needed for your pain. Referrals: [facility] [Primary Care Provider] - Follow up as needed
[2020-06-16 21:50] VITALS: BP 139/53
== END 2020-06-16 21:50 | disposition home or self-care (01) ==
LOC: ER 18:50
DX: M79.605 Pain in left leg (principal); W10.9XXA Fall (on) (from) unspecified stairs and steps, initial encounter; E10.9 Type 1 diabetes mellitus without complications
CPT/HCPCS: 99284

== ENCOUNTER → 2020-06-17 | Outpatient (CLI) | payer OTHER ==
[2020-06-17 09:42] LABS: FREE T3 3.06 pg/mL (2.77-5.27); FREE T4 (FREE THYROXINE) 1.23 ng/dL (0.78-2.19)
[2020-06-17 09:56] LABS: THYROID STIMULATING HORMONE 0.28 uIU/mL (0.47-4.68)
== END ==
LOC: CCC 08:05
PROVIDERS: ATTEND Family Medicine
DX: Z13.9 Encounter for screening, unspecified (principal)
CPT/HCPCS: 36415; 84439; 84443; 84481